=== PATIENT | female | born 1940 | race Caucasian/White ===

== ENCOUNTER 2017-04-07 03:49 | Emergency (ER) | payer MEDICARE, BC, OTHER ==
[~2017-04-07] VITALS: Ht 170.2 cm; Wt 77.4 kg
[~2017-04-07 03:49] MED LIST: AMIO200 PO; ASPI81TA45 PO; COMMODE 3:1; IRON28TA PO; LEVA750T PO; METO10 PO; METO25 PO; METR500I3 PO; OMEP20TA39 PO; WALKER ROLLING; WARF7.5 PO; ZOCO10TA PO
[2017-04-07 04:04] VITALS: BP 110/55; PULSE 69; RESP 20; TEMP 98.2; O2SAT 95
--- NOTE | 2017-04-07 04:11 | PD ---
HPI Chief Complaint: Injury Time Seen by Provider: 04:03 Travel History International Travel<30 days: No Contact w/Intl Traveler<30days: No Traveled to known affect area: No History of Present Illness HPI This is a 76-year-old female who presents to the emergency department having woken up from sleep with severe left elbow pain feeling like she has spasms in her elbow and arm involuntarily contract severity, constant for about an hour. She's never had anything like this before. She doesn't remember injuring her elbow before. She denies any numbness or weakness and denies any fevers or chills. She does have a history of psoriasis for which she is seeing a budget report clerk. PFSH Past Medical History Anxiety: No Depression: No Heart Rhythm Problems: Yes (RVR) Cancer: Yes (LUNG REMOVED) Cardiovascular Problems: Yes High Cholesterol: Yes Chemotherapy: No Chest Pain: Yes Congestive Heart Failure: Yes Cerebrovascular Accident: Yes (JANUARY 2010) Diabetes: Yes (NO MEDS-BORDERLINE) Diminished Hearing: No Endocrine: No Genitourinary: No Immune Disorder: No Implanted Vascular Access Dvce: Yes Musculoskeletal: No Neurologic: Yes (POST STROKE L SIDED SLIGHT WEAKNESS) Psychiatric: No Reproductive: No Respiratory: Yes Migraines: No Radiation Therapy: No Seizures: No Thyroid Disease: No Menopausal: Yes Past Surgical History Abdominal Surgery: Yes (APPENECTOMY, FILTER RIGHT GROIN FOR CLOTS) Body Medical Devices: FILTER L GROIN Cardiac Surgery: Yes (CARDIAC ABLATION X2) Eye Surgery: Yes (LASIX SX RIGHT EYE) Genitourinary Surgery: No Gynecologic Surgery: No Neurologic Surgery: Yes (BRAIN CLOT (CATHERIZATION)) Oral Surgery: No Thoracic Surgery: Yes (CANCER REMOVED FROM L LUNG) Other Surgery: Yes (BREAST BENIGN TUMOR REMOVED) Social History Alcohol Use: Yes (2-3 XWK WINE) Tobacco Use: No (QUIT 1989) Substance Use: No Allergies-Medications (Allergen,Severity, Reaction): Coded Allergies: Lovenox (Verified Allergy, Severe, HIVES, 04/07/17) Reported Meds & Prescriptions Reported Meds & Active Scripts Active Reported Omeprazole 20 Mg Tab 20 Mg PO DAILY Plavix (Clopidogrel Bisulfate) 75 Mg Tab 75 Mg PO DAILY Simvastatin 10 Mg Tab 10 Mg PO DAILY Review of Systems General / Constitutional: No: Fever, Chills Cardiovascular: No: Chest Pain or Discomfort Physical Exam Narrative GENERAL: Well-appearing, no acute distress, nontoxic SKIN: Pitting of the nailbeds, scaling plaques over the hands bilaterally HEAD: Atraumatic. Normocephalic. ENT: No nasal bleeding or discharge. Moist mucous membranes MUSCULOSKELETAL: Spasm of the bicep, no focal swelling of the elbow or bursa, painless range of motion of the left elbow Vascular: 2+ left radial pulse with normal capillary refill. NEUROLOGICAL: Awake and alert. No obvious cranial nerve deficits. Motor grossly within normal limits. Normal speech. PSYCHIATRIC: Appropriate mood and affect; insight and judgment normal. Data Data Last Documented VS Vital Signs Date Time Temp Pulse Resp B/P Pulse Ox O2 Delivery O2 Flow Rate FiO2 04/07/17 04:58 64 20 108/57 98 Room Air 04/07/17 04:04 98.2 Orders Elbow, Limited (Ap&Lat) (04/07/17 ) Diazepam (Valium) (04/07/17 04:15) Ketorolac Inj (Toradol Inj) (04/07/17 04:15) [facility] Medical Decision Making Medical Screen Exam Complete: Yes Emergency Medical Condition: Yes Interpretation(s) Last 24 hours Impressions Elbow X-Ray 04/07/17 0000 Signed Impressions: Service Date/Time: Friday, April 07, 2017 04:18 - CONCLUSION: Nonspecific joint effusion. Radiographic appearance of the left elbow is otherwise within normal limits. Alex Zarco MD Differential Diagnosis Osteoarthritis, psoriatic arthritis, septic arthritis, bursitis, muscle spasm Narrative Course This is a 76-year-old female who presents to the emergency department with left elbow pain that woke her from sleep. She has evidence of some muscle spasm in the bicep tendon on exam but painless range of motion so I doubt septic arthritis. She does have a joint effusion on x-ray. I suspect she has psoriatic arthritis as she appears to have an outbreak of psoriasis on the left hand and some joint involvement of her fingers. I recommended that she ultimately see a spooler and an orthopedist but I think she can start out with her primary care physician. She'll be started on tramadol and was given an Bairon wrap and instructions to elevate and rest the arm. Diagnosis Primary Impression: Elbow arthritis Patient Instructions: General Instructions Additional Instructions: If you develop worsening swelling, warmth, redness or fever return to the emergency department. Rest, ice, bairon wrap and elevate your elbow. Take tramadol as needed for pain. Talk to your primary care physician regarding a possible referral to a spooler. Med/Other Pt SpecificInfo: Prescription(s) given Scripts Tramadol 50 Mg Tab50 Mg PO Q6H PRN (PAIN) #15 TAB Prov:Cari Lowe MD 04/07/17 Disposition: 01 DISCHARGE HOME Condition: Stable Cari Lowe MD Apr 07, 2017 04:11
[2017-04-07] MEDS ORDERED: KETOROLAC TROMETHAMINE 60 MG/2 ML (IM) VIAL IM ONE (04:15)
[2017-04-07] MEDS ORDERED: DIAZEPAM 5 MG TAB PO ONE (04:15)
[2017-04-07] MEDS ORDERED: OMEP20TA PO (04:17)
[2017-04-07] MEDS ORDERED: SIMV10TA PO (04:17)
[2017-04-07] MEDS ORDERED: PLAV75TA29 PO (04:17)
--- NOTE | 2017-04-07 04:36 | RADRPT ---
EXAM DATE/TIME: 04/07/2017 04:18 [facility] COMPARISON: No previous studies available for comparison. INDICATIONS : Patient states woke up with left elbow pain and stiffness. MEDICAL HISTORY : None. SURGICAL HISTORY : None. ENCOUNTER: Initial ACUITY: 1 day PAIN SCORE: 8/10 LOCATION: Left elbow FINDINGS: Lateral view does suggest presence of a joint effusion. No fracture or subluxation demonstrated. No s ignificant degenerative changes are seen. No radiopaque foreign body. CONCLUSION: Nonspecific joint effusion. Radiographic appearance of the left elbow is otherwise within normal limi ts. Alex Zarco MD on April 07, 2017 at 4:34 Board Certified Radiologist. This report was verified electronically.
[2017-04-07 04:58] VITALS: BP 108/57; PULSE 64; RESP 20; O2SAT 98
[2017-04-07 05:17] VITALS: BP 98/47
[2017-04-07] MEDS ORDERED: TRAM50TA PO (05:17)
[2017-04-07] MEDS ORDERED: traMADol HCL 50 MG TAB PO ONE (05:30)
== END 2017-04-07 05:44 | disposition home or self-care (01) ==
LOC: PHED 03:49
DX: M19.022 Primary osteoarthritis, left elbow (principal)
CPT/HCPCS: 73070; 96372; 99284; J1885

== ENCOUNTER 2017-06-16 10:18 | Inpatient (IN) | payer MEDICARE, BC, OTHER ==
[2017-06-16] VITALS (12 sets, daily range): BP systolic 96–151; BP diastolic 53–80; PULSE 72–88; RESP 18–38; TEMP 96.6–98.3; O2SAT 79–100
[~2017-06-16 10:18] MED LIST changes: -AMIO200 PO; -ASPI81TA45 PO; -COMMODE 3:1; -IRON28TA PO; -LEVA750T PO; -METO10 PO; -METO25 PO; -METR500I3 PO; +OMEP20TA PO; -OMEP20TA39 PO; +PLAV75TA29 PO; +SIMV10TA PO; +TRAM50TA PO; -WALKER ROLLING; -WARF7.5 PO; -ZOCO10TA PO
[2017-06-16] MEDS ORDERED: RESP: ALBUTEROL 2.5 MG/IPRATROPIUM 0.5 MG NEB (SCH) INH ONE (10:30)
[2017-06-16] MEDS ORDERED: methylPREDNISolone SOD SUCC 125 MG/2 ML VIAL IV PUSH ONE (10:30)
--- NOTE | 2017-06-16 10:35 | PD ---
HPI Chief Complaint: shortness of breath Time Seen by Provider: 10:29 Travel History International Travel<30 days: No Contact w/Intl Traveler<30days: No Traveled to known affect area: No History of Present Illness HPI This is a 76-year-old female with history of lung cancer, COPD, presents today with points of shortness breath over 2 days. Patient reports is progressively worse over the last 2 days to the point where she cannot lie flat. She denies any fevers or chills but she does state that she's been diaphoretic because of the shortness of breath. There is no chest pain, chest pressure. She denies any productive cough. She does have an albuterol inhaler at home. She also uses Breo. There are no other complaints time my examination. PFSH Past Medical History Anxiety: No Depression: No Heart Rhythm Problems: Yes (RVR) Cancer: Yes (LUNG REMOVED) Cardiovascular Problems: Yes High Cholesterol: Yes Chemotherapy: No Chest Pain: Yes Congestive Heart Failure: Yes Cerebrovascular Accident: Yes (JANUARY 2010) Diabetes: Yes (NO MEDS-BORDERLINE) Diminished Hearing: No Endocrine: No Genitourinary: No Immune Disorder: No Implanted Vascular Access Dvce: Yes Musculoskeletal: No Neurologic: Yes (2000 CVA) Psychiatric: No Reproductive: No Respiratory: Yes Migraines: No Radiation Therapy: No Seizures: No Thyroid Disease: No Menopausal: Yes Past Surgical History Abdominal Surgery: Yes (APPENECTOMY, FILTER RIGHT GROIN FOR CLOTS) Body Medical Devices: FILTER L GROIN Cardiac Surgery: Yes (CARDIAC ABLATION X2) Eye Surgery: Yes (LASIX SX RIGHT EYE) Genitourinary Surgery: No Gynecologic Surgery: No Neurologic Surgery: Yes (BRAIN CLOT (CATHERIZATION)) Oral Surgery: No Thoracic Surgery: Yes (CANCER REMOVED FROM L LUNG) Other Surgery: Yes (BREAST BENIGN TUMOR REMOVED) Social History Alcohol Use: Yes (2-3 XWK WINE) Tobacco Use: No (QUIT 1989) Substance Use: No Allergies-Medications (Allergen,Severity, Reaction): Coded Allergies: enoxaparin (Unverified Allergy, Severe, HIVES, 06/16/17) Reported Meds & Prescriptions Reported Meds & Active Scripts Active Reported Potassium Chloride ER (Potassium Chloride) 20 Meq Tab 20 Meq PO DAILY Pantoprazole (Pantoprazole Sodium) 40 Mg Tab 40 Mg PO DAILY Metoprolol Tartrate 25 Mg Tab 25 Mg PO DAILY Levothyroxine (Levothyroxine Sodium) 50 Mcg Tab 50 Mcg PO DAILY Warfarin 5 Mg Tab 5 Mg PO DAILY Furosemide 40 Mg Tab 40 Mg PO BID Plavix (Clopidogrel Bisulfate) 75 Mg Tab 75 Mg PO DAILY Simvastatin 10 Mg Tab 10 Mg PO HS Review of Systems Except as stated in HPI: all other systems reviewed are Neg General / Constitutional: No: Fever, Chills HENT: No: Headaches, Neck Pain Cardiovascular: Positive: Irregular Rhythm (history of A. fib), No: Chest Pain or Discomfort, Palpitations Respiratory: Positive: Shortness of Breath, No: Cough Gastrointestinal: No: Nausea, Vomiting, Abdominal Pain Musculoskeletal: No: Weakness, Pain Skin: No Rash Neurologic: No: Weakness, Dizziness, Headache Physical Exam Narrative GENERAL: Well-developed well-nourished female in moderate respiratory distress. SKIN: Focused skin assessment warm/dry. HEAD: Atraumatic. Normocephalic. EYES: No scleral icterus. No injection or drainage. ENT: No nasal bleeding or discharge. Mucous membranes pink and moist. NECK: Trachea midline. Supple. CARDIOVASCULAR: Regular rate and rhythm. No murmur appreciated. RESPIRATORY: Coarse rhonchi bilaterally, worse on left than right. Fine next 3 wheezes heard at the bilateral bases. GASTROINTESTINAL: Abdomen soft, non-tender, nondistended. Hepatic and splenic margins not palpable. MUSCULOSKELETAL: No obvious deformities. No clubbing. No cyanosis. Trace pretibial edema bilaterally. NEUROLOGICAL: Awake and alert. No obvious cranial nerve deficits. Motor grossly within normal limits. Normal speech. PSYCHIATRIC: Appropriate mood and affect; insight and judgment normal. Data Data Last Documented VS Vital Signs Date Time Temp Pulse Resp B/P (MAP) Pulse Ox O2 Delivery O2 Flow Rate FiO2 06/16/17 11:39 72 26 108/53 (71) 98 BiPAP 06/16/17 11:08 98.3 06/16/17 11:07 2.00 06/16/17 11:00 70 Orders Orders Complete Blood Count With Diff (06/16/17 10:29) Comprehensive Metabolic Panel (06/16/17 10:29) B-Type Natriuretic Peptide (06/16/17 10:29) Ckmb (Isoenzyme) Profile (06/16/17 10:29) Troponin I (06/16/17 10:29) Arterial Blood Gas (Abg) (06/16/17 10:29) Iv Access Insert/Monitor (06/16/17 10:29) Electrocardiogram (06/16/17 10:29) Ecg Monitoring (06/16/17 10:29) Oximetry (06/16/17 10:29) Oxygen Administration (06/16/17 10:29) Chest, Single Ap (06/16/17 10:29) Sodium Chloride 0.9% Flush (Ns Flush) (06/16/17 10:30) Methylprednisolone So Succ Inj (Solumedr (06/16/17 10:30) Albuterol-Ipratropium Neb (Duoneb Neb) (06/16/17 10:30) Albuterol Neb (Albuterol Neb) (06/16/17 10:30) Lorazepam Inj (Ativan Inj) (06/16/17 11:00) Furosemide Inj (Lasix Inj) (06/16/17 11:15) Prothrombin Time / Inr (Pt) (06/16/17 12:05) Act Partial Throm Time (Ptt) (06/16/17 12:05) Labs Laboratory Tests Test 06/16/17 10:35 06/16/17 11:00 White Blood Count 10.1 TH/MM3 Red Blood Count 4.36 MIL/MM3 Hemoglobin 8.6 GM/DL Hematocrit 29.4 % Mean Corpuscular Volume 67.4 FL Mean Corpuscular Hemoglobin 19.8 PG Mean Corpuscular Hemoglobin Concent 29.4 % Red Cell Distribution Width 19.6 % Platelet Count 416 TH/MM3 Mean Platelet Volume 8.1 FL Neutrophils (%) (Auto) 60.5 % Lymphocytes (%) (Auto) 23.3 % Monocytes (%) (Auto) 12.6 % Eosinophils (%) (Auto) 1.7 % Basophils (%) (Auto) 1.9 % Neutrophils # (Auto) 6.1 TH/MM3 Lymphocytes # (Auto) 2.3 TH/MM3 Monocytes # (Auto) 1.3 TH/MM3 Eosinophils # (Auto) 0.2 TH/MM3 Basophils # (Auto) 0.2 TH/MM3 CBC Comment AUTO DIFF Differential Comment AUTO DIFF CONFIRMED Target Cells 1+ Ovalocytes 2+ Keratocytes OCC Blood Urea Nitrogen 11 MG/DL Creatinine 0.77 MG/DL Random Glucose 284 MG/DL Total Protein 7.6 GM/DL Albumin 3.1 GM/DL Calcium Level 8.6 MG/DL Alkaline Phosphatase 104 U/L Aspartate Amino Transf (AST/SGOT) 24 U/L Alanine Aminotransferase (ALT/SGPT) 14 U/L Total Bilirubin 0.5 MG/DL Sodium Level 140 MEQ/L Potassium Level 3.8 MEQ/L Chloride Level 106 MEQ/L Carbon Dioxide Level 22.4 MEQ/L Anion Gap 12 MEQ/L Estimat Glomerular Filtration Rate 73 ML/MIN Total Creatine Kinase 95 U/L Troponin I LESS THAN 0.02 NG/ML B-Type Natriuretic Peptide 528 PG/ML Blood Gas Puncture Site RT RADIAL Blood Gas Patient Temperature 98.6 Blood Gas HCO3 22 mmol/L Blood Gas Base Excess -3.3 mmol/L Blood Gas Oxygen Saturation 87 % Arterial Blood pH 7.32 Arterial Blood Partial Pressure CO2 44 mmHG Arterial Blood Partial Pressure O2 67 mmHG Arterial Blood Oxygen Content 9.9 Vol % Arterial Blood Carboxyhemoglobin 2.2 % Arterial Blood Methemoglobin 1.2 % Blood Gas Hemoglobin 8.1 G/DL Oxygen Delivery Device NASAL CANNULA Blood Gas Liter Flow 2 L/M [facility] Medical Decision Making Medical Screen Exam Complete: Yes Emergency Medical Condition: Yes Differential Diagnosis COPD versus CHF versus pneumonia Narrative Course 76-year-old female history lung cancer, status post lobectomy on the left, COPD , presents today with shortness of breath progressive over 2 days patient denies any fevers, chills. Patient states that she cannot lie flat secondary to the shortness of breath. Chest x-ray shows congestive heart failure. Her d- dimer is elevated at greater than 500. She's been given 3 breathing treatments , 125 mg of Solu-Medrol, 40 Lasix. She is currently on BiPAP. She is breathing much better. She's been given Ativan 1 mg I V times one dose also to help her relax because she was feeling claustrophobic with the BiPAP. Her sats are 100%. Blood gas on 2 L showed pH of 7.318 PCO2 43.9 and a PO2 of 67.1. O2 sat was 86.6%. There is a call out to the [facility] hospitalist service for admission. The patient is on Coumadin. She does have history of A. fib however her heart rhythm right now is sinus rhythm. Blood glucose is elevated at 284. Cardiac enzymes are negative. Diagnosis Primary Impression: Acute exacerbation of CHF (congestive heart failure) Additional Impressions: Hypoxemia Hyperglycemia History of COPD History of lung cancer Admitting Information Admitting Physician Requests: Admit Sebastian Ng MD Jun 16, 2017 10:35
[2017-06-16 10:45] LABS: AUTOMATED NEUTROPHIL # 6.1 TH/MM3 (1.8-7.7); BASOPHIL # 0.2 TH/MM3 (0-0.2); BASOPHIL % 1.9 % (0.0-2.0); EOSINOPHIL # 0.2 TH/MM3 (0-0.4); EOSINOPHIL % 1.7 % (0.0-4.0); HEMATOCRIT 29.4 % (35.0-46.0); LYMPH % 23.3 % (9.0-44.0); LYMPHOCYTE # 2.3 TH/MM3 (1.0-4.8); MEAN CELL VOLUME 67.4 FL (80.0-100.0); MEAN CORPUSCULAR HEMOGLOBIN 19.8 PG (27.0-34.0); MONO % 12.6 % (0.0-8.0); NEUT % 60.5 % (16.0-70.0); PLATELET COUNT 416 TH/MM3 (150-450); RED BLOOD COUNT 4.36 MIL/MM3 (4.00-5.30); RED CELL DISTRIBUTION WIDTH 19.6 % (11.6-17.2); WHITE BLOOD COUNT 10.1 TH/MM3 (4.0-11.0)
[2017-06-16] MEDS: SODIUM CHLORIDE 0.9% FLUSH 10 ML FLUSH IVF PRN ×2 (10:45→11:42)
[2017-06-16 10:46] LABS: HEMO FLAGS AUTO DIFF; MEAN CORPUSCULAR HGB CONC 29.4 % (32.0-36.0)
[2017-06-16] MEDS ORDERED: FURO40TA PO (10:47)
[2017-06-16] MEDS ORDERED: METO25TA3 PO (10:47)
[2017-06-16] MEDS ORDERED: WARF-23 PO (10:47)
[2017-06-16] MEDS ORDERED: POTA-163 PO (10:47)
[2017-06-16] MEDS ORDERED: LEVO50TA4 PO (10:47)
[2017-06-16] MEDS ORDERED: PANT40TA3 PO (10:47)
--- NOTE | 2017-06-16 10:49 | RADRPT ---
EXAM DATE/TIME: 06/16/2017 10:34 [facility] COMPARISON: CHEST SINGLE AP, November 23, 2015, 21:03. INDICATIONS : Short of breath. MEDICAL HISTORY : Cardiovascular disease. Chronic obstructive pulmonary disease. SURGICAL HISTORY : Cardiac ablation ENCOUNTER: Initial ACUITY: 2 days PAIN SCORE: 0/10 LOCATION: Bilateral chest FINDINGS: There is cardiomegaly and moderate congestive failure progressed from 11/23/15. There is no pleural effusion. There is no consolidation. CONCLUSION: Moderate congestive failure without effusion. Adonis Soriano MD FACR on June 16, 2017 at 10:47 Board Certified Radiologist. This report was verified electronically.
[2017-06-16] MEDS: RESP: ALBUTEROL 2.5 MG/3 ML NEB (SCH) INH ×2 (10:51→11:14)
[2017-06-16 10:54] LABS: CHLORIDE 106 MEQ/L (98-107); POTASSIUM 3.8 MEQ/L (3.5-5.1); SODIUM (NA) 140 MEQ/L (136-145)
[2017-06-16 10:58] LABS: ANION GAP 12 MEQ/L (5-15); BICARBONATE 22.4 MEQ/L (21.0-32.0); BLOOD UREA NITROGEN 11 MG/DL (7-18)
[2017-06-16] MEDS ORDERED: LORazepam 2 MG/ML VIAL IV PUSH ONE (11:00)
[2017-06-16 11:01] LABS: ALT (GPT) 14 U/L (10-53); AST (GOT) 24 U/L (15-37); GLOMERULAR FILTRATION RATE 73 ML/MIN (>89)
[2017-06-16 11:02] LABS: TOTAL BILIRUBIN ADULT 0.5 MG/DL (0.2-1.0)
[2017-06-16 11:04] LABS: ALKALINE PHOSPHATASE 104 U/L (45-117)
[2017-06-16 11:10] LABS: BLOOD GAS BASE EXCESS -3.3 mmol/L (-2-2); BLOOD GAS CARBOXYHEMOGLOBIN 2.2 % (0-4); BLOOD GAS HCO3 22 mmol/L (22-26); BLOOD GAS METHEMOGLOBIN 1.2 % (0-2); BLOOD GAS O2 HGB SATURATION 87 % (90-100); BLOOD GAS OXYGEN CONTENT 9.9 Vol % (12.0-20.0); BLOOD GAS PCO2 44 mmHG (38-42); BLOOD GAS PO2 67 mmHG (61-120); BLOOD GAS TOTAL HGB 8.1 G/DL (12.0-16.0); CRITICAL VALUE YES; DRAW SITE RT RADIAL; LITER FLOW 2 L/M; NUMBER OF ARTERIAL PUNCTURES 1; OXYGEN DEVICE NASAL CANNULA; STAT YES; TEMP CORR TO 98.6; ULNAR PULSE PRESENT
[2017-06-16 11:14] LABS: KERATOCYTES OCC (NORMAL); OVALOCYTES 2+ (NORMAL); TARGET CELLS 1+ (NORMAL)
[2017-06-16 11:15] LABS: SCAN/DIFF AUTO DIFF CONFIRMED
[2017-06-16] MEDS ORDERED: FUROSEMIDE 40 MG/4 ML VIAL IV PUSH ONE (11:15)
[2017-06-16 11:21] LABS: CREATINE KINASE 95 U/L (26-192)
[2017-06-16 12:27] LABS: APTT (PATIENT) 23.3 SEC (24.3-30.1); INTERNATIONAL NORMALIZED RATIO 1.2 RATIO; PROTHROMBIN TIME - PATIENT 12.9 SEC (9.8-11.6)
[2017-06-16] MEDS ORDERED: NALOXONE HCL 0.4 MG/ML AMP IV PUSH PRN (12:30)
[2017-06-16] MEDS ORDERED: FUROSEMIDE 20 MG/2 ML VIAL IV PUSH ONE (12:30)
[2017-06-16] MEDS ORDERED: SODIUM CHLORIDE 0.9% FLUSH 10 ML FLUSH IV FLUSH PRN (12:30)
--- NOTE | 2017-06-16 16:18 | HHI.HP ---
[facility] Viviane Garzon MD Admission Diagnosis new onset chf, hypoxemia, hyperglycemia, copd, hx of lung ca Diagnoses: Travel History International Travel<30 Days: No Contact w/Intl Traveler <30 Da: No Traveled to Known Affected Are: No History of Present Illness This patient is a 76-year-old female with a history of COPD and atrial fibrillation. She has had 2 weeks of increased dyspnea on exertion and orthopnea. She notes she saw her primary care physician with the same symptoms and was given a breo inhaler with minimal improvement. She had no chest pain, no edema and noted that she began to feel dizzy. She came to the emergency room was found to be 70% on room air and given some IV Lasix with BiPAP placement. Patient did better and had diuresis, the emergency room. Her oxygenation improved. She admits she has had pursed lip breathing the last weeks and thought that it was COPD. She quit smoking in the late . Patient's been admitted to the hospital for respiratory failure Past Family Social History Past Medical History Afib COPD Thyroid d/o Past Surgical History Appendectomy Left groin filter, cardiac ablation, eye surgery Left lung resection Breast tumor resection Reported Medications Reviewed in the EMR, stop all of her medications for the last 10 days after misunderstanding because her Coumadin was elevated and she was post started her warfarin Allergies: Coded Allergies: enoxaparin (Unverified Allergy, Severe, HIVES, 06/16/17) Active Ordered Medications Reviewed in the EMR Family History Mother of lung cancer Father unknown Social History Stopped smoking years ago ( 1997), lives with her spouse, alcohol daily Physical Exam Vital Signs Vital Signs Date Time Temp Pulse Resp B/P (MAP) Pulse Ox O2 Delivery O2 Flow Rate FiO2 06/16/17 13:32 74 22 112/59 (76) 98 BiPAP 06/16/17 13:15 95 Nasal Cannula 2.00 06/16/17 13:11 75 22 109/69 (82) 97 BiPAP 06/16/17 11:39 72 26 108/53 (71) 98 BiPAP 06/16/17 11:08 100 BiPAP 06/16/17 11:08 98.3 06/16/17 11:07 83 24 145/80 (101) 91 Nasal Cannula 2.00 06/16/17 11:00 100 70 06/16/17 11:00 90 Nasal Cannula 06/16/17 10:52 91 Nasal Cannula 2.00 06/16/17 10:50 85 28 151/76 (101) 92 Nasal Cannula 2.00 06/16/17 10:28 92 Nasal Cannula 2.00 06/16/17 10:25 88 38 144/76 (98) 79 Physical Exam GENERAL: This is a well-nourished, well-developed patient, short of breath with pursed lip breathing with minimal exertion SKIN: No rashes, ecchymoses or lesions. Cool and dry. HEAD: Atraumatic. Normocephalic. No temporal or scalp tenderness. EYES: Pupils equal round and reactive. Extraocular motions intact. No scleral icterus. No injection or drainage. ENT: Nose without bleeding, purulent drainage or septal hematoma. Throat without erythema, tonsillar hypertrophy or exudate. Uvula midline. Airway patent. NECK: Trachea midline. No JVD or lymphadenopathy. Supple, nontender, no meningeal signs. CARDIOVASCULAR: Atrial fibrillation without murmurs, gallops, or rubs. RESPIRATORY: Crackles at the bases bilaterally, worse on the right. GASTROINTESTINAL: Abdomen soft, non-tender, nondistended. No hepato-splenomegaly , or palpable masses. No guarding. MUSCULOSKELETAL: Extremities without clubbing, cyanosis, or edema. No joint tenderness, effusion, or edema noted. No calf tenderness. Negative Homans sign bilaterally. NEUROLOGICAL: Awake and alert. Cranial nerves II through XII intact. Motor and sensory grossly within normal limits. Five out of 5 muscle strength in all muscle groups. Normal speech. Laboratory Laboratory Tests Test 06/16/17 10:35 06/16/17 11:00 White Blood Count 10.1 Red Blood Count 4.36 Hemoglobin 8.6 Hematocrit 29.4 Mean Corpuscular Volume 67.4 Mean Corpuscular Hemoglobin 19.8 Mean Corpuscular Hemoglobin Concent 29.4 Red Cell Distribution Width 19.6 Platelet Count 416 Mean Platelet Volume 8.1 Neutrophils (%) (Auto) 60.5 Lymphocytes (%) (Auto) 23.3 Monocytes (%) (Auto) 12.6 Eosinophils (%) (Auto) 1.7 Basophils (%) (Auto) 1.9 Neutrophils # (Auto) 6.1 Lymphocytes # (Auto) 2.3 Monocytes # (Auto) 1.3 Eosinophils # (Auto) 0.2 Basophils # (Auto) 0.2 CBC Comment AUTO DIFF Differential Comment AUTO DIFF CONFIRMED Target Cells 1+ Ovalocytes 2+ Keratocytes OCC Prothrombin Time 12.9 Prothromb Time International Ratio 1.2 Activated Partial Thromboplast Time 23.3 Blood Urea Nitrogen 11 Creatinine 0.77 Random Glucose 284 Total Protein 7.6 Albumin 3.1 Calcium Level 8.6 Alkaline Phosphatase 104 Aspartate Amino Transf (AST/SGOT) 24 Alanine Aminotransferase (ALT/SGPT) 14 Total Bilirubin 0.5 Sodium Level 140 Potassium Level 3.8 Chloride Level 106 Carbon Dioxide Level 22.4 Anion Gap 12 Estimat Glomerular Filtration Rate 73 Total Creatine Kinase 95 Troponin I LESS THAN 0.02 B-Type Natriuretic Peptide 528 Blood Gas Puncture Site RT RADIAL Blood Gas Patient Temperature 98.6 Blood Gas HCO3 22 Blood Gas Base Excess -3.3 Blood Gas Oxygen Saturation 87 Arterial Blood pH 7.32 Arterial Blood Partial Pressure CO2 44 Arterial Blood Partial Pressure O2 67 Arterial Blood Oxygen Content 9.9 Arterial Blood Carboxyhemoglobin 2.2 Arterial Blood Methemoglobin 1.2 Blood Gas Hemoglobin 8.1 Oxygen Delivery Device NASAL CANNULA Blood Gas Liter Flow 2 Result Diagram: 06/16/17 1035 06/16/17 1035 Imaging Last Impressions Chest X-Ray 06/16/17 1029 Signed Impressions: Service Date/Time: Friday, June 16, 2017 10:34 - CONCLUSION: Moderate congestive failure without effusion. Adonis Soriano MD FACR Caprini VTE Risk Assessment Caprini VTE Risk Assessment: Mod/High Risk (score >= 2) VTE Pharm Contraindication: on Coumadin Caprini Risk Assessment Model Point Value = 1 Point Value = 2 Point Value = 3 Point Value = 5 Age 41-60 Minor surgery BMI > 25 kg/m2 Swollen legs Varicose veins or History of unexplained or recurrent spontaneous Oral contraceptives or hormone replacement Sepsis (< 1 month) Serious lung disease, including pneumonia (< 1 month) Abnormal pulmonary function Acute myocardial infarction Congestive heart failure (< 1 month) History of inflammatory bowel disease Medical patient at bed rest Age 61-74 Arthroscopic surgery Major open surgery (> 45 min) Laparoscopic surgery (> 45 min) Malignancy Confined to bed (> 72 hours) Immobilizing plaster cast Central venous access Age >= 75 History of VTE Family history of VTE Factor V Leiden Prothrombin [id number] Lupus anticoagulant Anticardiolipin antibodies Elevated serum homocysteine Heparin-induced thrombocytopenia Other congenital or acquired thrombophilia Stroke (< 1 month) Elective arthroplasty Hip, pelvis, or leg fracture Acute spinal cord injury (< 1 month) Prophylaxis Regimen Total Risk Factor Score Risk Level Prophylaxis Regimen 0-1 Low Early ambulation 2 Moderate Order ONE of the following: *Sequential Compression Device (SCD) *Heparin 5000 units SQ BID 3-4 Higher Order ONE of the following medications: *Heparin 5000 units SQ TID *Enoxaparin/Lovenox 40 mg SQ daily (WT < 150 kg, CrCl > 30 mL/min) *Enoxaparin/Lovenox 30 mg SQ daily (WT < 150 kg, CrCl > 10-29 mL/min) *Enoxaparin/Lovenox 30 mg SQ BID (WT < 150 kg, CrCl > 30 mL/min) AND/OR *Sequential Compression Device (SCD) 5 or more Highest Order ONE of the following medications: *Heparin 5000 units SQ TID (Preferred with Epidurals) *Enoxaparin/Lovenox 40 mg SQ daily (WT < 150 kg, CrCl > 30 mL/min) *Enoxaparin/Lovenox 30 mg SQ daily (WT < 150 kg, CrCl > 10-29 mL/min) *Enoxaparin/Lovenox 30 mg SQ BID (WT < 150 kg, CrCl > 30 mL/min) AND *Sequential Compression Device (SCD) Assessment and Plan Problem List: (1) History of COPD ICD Code: Z87.09 - Personal history of other diseases of the respiratory system Status: Acute Plan: With mild exacerbation Continue bronchodilator, IV steroids (2) Hypoxemia ICD Code: R09.02 - Hypoxemia Status: Acute Plan: With evidence of respiratory failure requiring BiPAP. Status post Lasix patient's respirator status has improved. Likely multifactorial due to COPD and possible CHF. Echocardiogram from 2009 within normal limits, repeat pending Continue to follow on Lasix and cardiology consult pending Continue treatment for COPD with mild exacerbation (3) Atrial fibrillation and flutter ICD Code: I48.91 - Unspecified atrial fibrillation; I48.92 - Unspecified atrial flutter Status: Chronic Plan: Patient has been on warfarin with elevated INR. Her medications have been held and in fact she held "all of her medications "for the last 10 days. Rate is currently controlled, INR is 1.2 today Assessment and Plan on Coumadin Physician Certification 2 Midnight Certification Type: Admission for Inpatient Services Order for Inpatient Services The services are ordered in accordance with Medicare regulations or non- Medicare payer requirements, as applicable. In the case of services not specified as inpatient-only, they are appropriately provided as inpatient services in accordance with the 2-midnight benchmark. Estimated LOS (days): 4 4 days is the estimated time the patient will need to remain in the hospital, assuming treatment plan goals are met and no additional complications. Post-Hospital Plan: Silke Santiago MD Jun 16, 2017 16:18
[2017-06-16] MEDS: FUROSEMIDE 40 MG/4 ML VIAL IV PUSH SCH ×2 (18:00→19:35)
[2017-06-16] MEDS: SODIUM CHLORIDE 0.9% FLUSH 10 ML FLUSH IV FLUSH SCH (20:34)
[2017-06-16] MEDS: methylPREDNISolone SOD SUCC 40 MG/1 ML VIAL IV PUSH SCH (20:34)
[2017-06-16] MEDS: PRAVASTATIN SOD 20 MG TAB PO SCH (20:35)
--- NOTE | 2017-06-16 20:36 | EKG ---
Date Performed: 06/16/2017 Time Performed: 10:49:26 PTAGE: 76 years EKG: Sinus rhythm NONSPECIFIC ST & T-WAVE ABNORMALITY BORDERLINE ECG PREVIOUS TRACING : 11/28/2015 12.17 Compared to prior tracing no significant change DOCTOR: Gregor Gerard Interpretating Date/Time 06/16/2017 20:35:01
[2017-06-16 21:28] LABS: HEMOGLOBIN A1a 2.2 %; HEMOGLOBIN A1b 2.2 %; HEMOGLOBIN Ao 82.1 %; HEMOGLOBIN LA1C 2.6 %; HEMOGLOBIN P3 4.1 %
[2017-06-17] VITALS: BP 113/72; PULSE 74; RESP 18; TEMP 96.5; O2SAT 97
[2017-06-17 04:00] VITALS: BP 115/63; PULSE 74; RESP 18; TEMP 95.6; O2SAT 97
[2017-06-17] MEDS: LEVOTHYROXINE SODIUM 50 MCG TAB PO SCH (05:12)
[2017-06-17 08:00] VITALS: BP 107/60; PULSE 64; PULSE 69; RESP 20; TEMP 97.5; O2SAT 99
[2017-06-17] MEDS ORDERED: POTASSIUM CHLORIDE 20 MEQ CONTROLLED RELEASE TAB PO SCH (09:30)
[2017-06-17] MEDS: CLOPIDOGREL 75 MG TAB PO SCH (09:39)
[2017-06-17] MEDS: POTASSIUM CHLORIDE 20 MEQ CONTROLLED RELEASE TAB PO SCH (09:39)
[2017-06-17] MEDS: METOPROLOL TARTRATE 25 MG TAB PO SCH (09:40)
[2017-06-17] MEDS: FUROSEMIDE 40 MG/4 ML VIAL IV PUSH SCH ×2 (09:40→17:05)
[2017-06-17] MEDS: SODIUM CHLORIDE 0.9% FLUSH 10 ML FLUSH IV FLUSH SCH ×2 (09:40→21:15)
[2017-06-17] MEDS: methylPREDNISolone SOD SUCC 40 MG/1 ML VIAL IV PUSH SCH ×2 (09:42→21:15)
[2017-06-17] MEDS: PANTOPRAZOLE SOD 40 MG DELAYED RELEASE TAB PO SCH (09:42)
[2017-06-17] MEDS ORDERED: INFLUENZA VIRUS VACCINE (QUADRIVALENT) 0.5 ML SYR IM ONE (10:00)
--- NOTE | 2017-06-17 11:44 | ECHRPT ---
Indication: HEART FAILURE CONCLUSIONS Normal left ventricular size. Mild concentric left ventricular hypertrophy. The left ventricular systolic function is moderately reduced with an estimated ejection fraction in the range of 40-45%. There is diffuse global hypokinesis with distinct regional wall motion abnormalities. Doppler parameters are consistent with a restrictive left ventricular filling pattern indicative of decreased left ventricular diastolic compliance and increase left atrial pressure (grade 3 diastolic dysfuncti on). The left atrial size is moderately dilated. The right atrial size is mildly dilated. No atrial level shunt is demonstrated by color flow Doppler interrogation. Mild thickening of the mitral valve leaflets. Vmuo-dr-[id number] mitral valve regurgitation. There is trace tricuspid valve regurgitation. There is estimated moderate pulmonary hypertension present (range 50-60 mmHg). The inferior vena cava (IVC) is normal in size. There is greater than 50% respiratory change in dimension of the inferior vena cava (normal). A large left sided pleural effusion is noted. BP: 107 / 60 HR: 69 Rhythm: Sinus MEASUREMENTS (Male / Female) Normal Values Technical Quality:Fair 2D ECHO LV Diastolic Diameter PLAX 5.0 cm 4.2 - 5.9 / 3.9 - 5.3 cm LV Systolic Diameter PLAX 3.9 cm IVS Diastolic Thickness 1.1 cm 0.6 - 1.0 / 0.6 - 0.9 cm LVPW Diastolic Thickness 0.7 cm 0.6 - 1.0 / 0.6 - 0.9 cm LV Relative Wall Thickness 0.4 LVOT Diameter 2.3 cm Aortic Root Diameter 2.8 cm LA Systolic Diameter LX 2.1 cm 3.0 - 4.0 / 2.7 - 3.8 cm M-MODE AV Cusp Separation MM 2.0 cm DOPPLER AV Peak Velocity 122.0 cm/s AV Peak Gradient 6.0 mmHg AV Mean Gradient 3.0 mmHg AV Velocity Time Integral 25.4 cm LVOT Peak Velocity 60.9 cm/s LVOT Peak Gradient 1.5 mmHg LVOT Velocity Time Integral 12.8 cm LVOT Cardiac Index 1919.4 cm/minm AV Area Cont Eq vti 2.1 cm AV Area Cont Eq pk 2.1 cm Mitral E Point Velocity 76.5 cm/s Mitral A Point Velocity 28.6 cm/s Mitral E to A Ratio 2.7 LV E' Lateral Velocity 6.5 cm/s Mitral E to LV E' Lateral Ratio 11.7 LV E' Septal Velocity 4.0 cm/s Mitral E to LV E' Septal Ratio 19.2 TR Peak Velocity 355.0 cm/s TR Peak Gradient 50.4 mmHg Right Atrial Pressure 10.0 mmHg Pulmonary Artery Systolic Pressu 60.4 mmHg Right Ventricular Systolic Press 60.4 mmHg PV Peak Velocity 56.4 cm/s PV Peak Gradient 1.3 mmHg FINDINGS LEFT VENTRICLE Normal left ventricular size. Mild concentric left ventricular hypertrophy. The left ventricular systolic function is moderately reduced with an estimated ejection fraction in the range of 40-45%. There is diffuse global hypokinesis with distinct regional wall motion abnormalities. Doppler parameters are consistent with a restrictive left ventricular filling pattern indicative of decreased left ventricular diastolic compliance and increase left atrial pressure (grade 3 diastolic dysfuncti on). RIGHT VENTRICLE Normal right ventricular size and systolic function. LEFT ATRIUM The left atrial size is moderately dilated. RIGHT ATRIUM The right atrial size is mildly dilated. ATRIAL SEPTUM No atrial level shunt is demonstrated by color flow Doppler interrogation. AORTA The aortic root and proximal ascending aorta are normal in size on limited imaging. MITRAL VALVE Mild thickening of the mitral valve leaflets. [id number]-xzysmlrx mitral valve regurgitation. AORTIC VALVE Trileaflet aortic valve. No aortic valve stenosis or regurgitation. TRICUSPID VALVE Structurally normal tricuspid valve. There is trace tricuspid valve regurgitation. There is estimated moderate pulmonary hypertension present (range 50-60 mmHg). PULMONARY VALVE No pulmonary valve regurgitation or stenosis. VESSELS The inferior vena cava (IVC) is normal in size. There is greater than 50% respiratory change in dimension of the inferior vena cava (normal). PERICARDIUM No pericardial effusion. A large left sided pleural effusion is noted. Kemar Schaefer MD, FACC (Electronically Signed) Final Date:17 June 2017 11:42
[2017-06-17 12:00] VITALS: BP 98/50; PULSE 67; RESP 18; TEMP 97.2; O2SAT 97
--- NOTE | 2017-06-17 13:34 | HHI.PR ---
Subjective Remarks patient seen in room in follow up for SOB with Pursed lip breathing and HUSSEIN Hypoxemia is better Trop up Objective Vitals Vital Signs Date Time Temp Pulse Resp B/P (MAP) Pulse Ox O2 Delivery O2 Flow Rate FiO2 06/17/17 12:00 97.2 67 18 98/50 (66) 97 06/17/17 08:00 97.5 69 20 107/60 (76) 99 06/17/17 07:00 96 Nasal Cannula 2.00 06/17/17 04:00 95.6 74 18 115/63 (80) 97 06/17/17 00:00 96.5 74 18 113/72 (86) 97 06/16/17 20:00 96.6 76 18 113/67 (82) 98 06/16/17 20:00 98 Nasal Cannula 2.00 06/16/17 20:00 83 06/16/17 16:57 97.5 73 20 96/60 (72) 98 06/16/17 13:32 74 22 112/59 (76) 98 BiPAP I/O 06/16/17 06/16/17 06/16/17 06/17/17 06/17/17 06/17/17 07:00 15:00 23:00 07:00 15:00 23:00 Intake Total 240 ml Output Total 650 ml 300 ml 1400 ml Balance -650 ml -300 ml -1160 ml Intake Oral 240 ml Output Urine Total 650 ml 300 ml 1400 ml # Voids 2 Result Diagram: 06/16/17 1035 06/16/17 1035 Imaging Last Impressions Chest X-Ray 06/16/17 1029 Signed Impressions: Service Date/Time: Friday, June 16, 2017 10:34 - CONCLUSION: Moderate congestive failure without effusion. Adonis Soriano MD FACR Objective Remarks GENERAL: This is a well-nourished, well-developed patient, pursed lip breathing CARDIOVASCULAR: Regular rate and rhythm without murmurs, gallops, or rubs. RESPIRATORY: decreased breath sounds bilaterally. No wheezes, rales, or rhonchi. GASTROINTESTINAL: Abdomen soft, non-tender, nondistended. Normal active bowel sounds MUSCULOSKELETAL: Extremities without clubbing, cyanosis, or edema. NEURO: Alert & Oriented x4 to person, place, time, situation. Moves all ext x4 A/P Problem List: (1) History of COPD ICD Code: Z87.09 - Personal history of other diseases of the respiratory system Status: Acute Plan: With mild exacerbation (no home meds, sees Dr Yousif) Continue bronchodilator, IV steroids (2) Hypoxemia ICD Code: R09.02 - Hypoxemia Status: Acute Plan: With evidence of respiratory failure requiring BiPAP. Status post Lasix patient's respirator status has improved. Likely multifactorial due to COPD and acute exacerbation of CHF. Echocardiogram shows LVF decreased and right heart dysfunction (combined systolic and diastolic Heart failure) Continue to follow on Lasix and cardiology consult pending Continue treatment for COPD with mild exacerbation (3) Atrial fibrillation and flutter ICD Code: I48.91 - Unspecified atrial fibrillation; I48.92 - Unspecified atrial flutter Status: Chronic Plan: Patient has been on warfarin with elevated INR. Her medications have been held and in fact she held "all of her medications" for the last 10 days. Rate is currently controlled, INR is 1.2 today cont metoprolol (4) Elevated troponin ICD Code: R74.8 - Abnormal levels of other serum enzymes Plan: With SOB and Increased WOB ? anginal equivalent Cath previously showed Nl coronaries Cont BB, warfari/plavix (allergy to enoxaparin) Silke Norwood MD Jun 17, 2017 13:34
[2017-06-17] MEDS: WARFARIN SOD 5 MG TAB PO SCH (15:10)
[2017-06-17 16:00] VITALS: BP 100/53; PULSE 66; RESP 18; TEMP 97.2; O2SAT 98
--- NOTE | 2017-06-17 18:09 | MB ---
cc: KAYLAN ZAPIEN MD DATE OF CONSULTATION 06/17/17 HISTORY OF PRESENT ILLNESS This is a 76 year old female, patient of Dr. Moeller. The patient has a history of atrial fibrillation, ablation before in sinus rhythm now, history of chronic obstructive pulmonary disease. Lungs cancer with lobectomy of the left upper lobe. History of appendectomy, IVC filter placement, eye surgery, admitted with progressive shortness of breath, orthopnea and paroxysmal nocturnal dyspnea. He had a bad night and came to the hospital the following day, found to be in congestive heart failure. Cardiac exam is negative. BNP significantly elevated. No chest pain, no syncope or presyncope, no edema. PAST MEDICAL HISTORY As above. SOCIAL HISTORY No alcohol, no drugs, no tobacco. ALLERGIES NO KNOWN DRUG ALLERGIES MEDICATIONS See chart for details. She started on IV Lasix. After the Lasix IV she felt much better. FAMILY HISTORY Noncontributory REVIEW OF SYSTEMS Reviewed, essentially as above. PHYSICAL EXAMINATION GENERAL: Alert and oriented, cooperative not in any acute distress. VITAL SIGNS: Blood pressure 100/60, pulse in the 70s, regular equal bilateral respirations 20, afebrile. HEENT: Unremarkable. HEART: S1, S2. Systolic murmur grade 2/6. LUNGS: Clear at the time of admission. ABDOMEN: No organomegaly, no masses. EXTREMITIES: No edema, pulses intact. CARDIOLOGY STUDIES Electrocardiogram was sinus rhythm with no acute changes. IMAGING STUDIES Chest x-ray - no acute cardiopulmonary process, chronic obstructive pulmonary disease. IMPRESSION AND PLAN Congestive heart failure. Agree with the present management. Echocardiogram reviewed. Continue supportive care. Possibly in about 2-4 hours from now could change the IV Lasix to by mouth. Ambulate after than. Thank you for the consultation. MD RAMIRO Munoz/ /4:51 PM /5:45 PM
[2017-06-17 20:00] VITALS: BP_SYST 110; BP_SYST 158; BP_DIAS 54; BP_DIAS 83; PULSE 71; PULSE 74; RESP 16; RESP 22; TEMP 97.4; TEMP 98.3; O2SAT 93; O2SAT 97
[2017-06-17] MEDS: PRAVASTATIN SOD 20 MG TAB PO SCH (21:15)
[2017-06-18] VITALS (15 sets, daily range): BP systolic 99–122; BP diastolic 47–84; PULSE 57–104; RESP 14–25; TEMP 97.3–98.3; O2SAT 94–100
[2017-06-18] MEDS: LEVOTHYROXINE SODIUM 50 MCG TAB PO SCH (05:50)
[2017-06-18 06:28] LABS: AUTOMATED NEUTROPHIL # 11.1 TH/MM3 (1.8-7.7); BASOPHIL % 0.1 % (0.0-2.0); HEMATOCRIT 24.5 % (35.0-46.0); LYMPH % 3.7 % (9.0-44.0); LYMPHOCYTE # 0.4 TH/MM3 (1.0-4.8); MEAN CELL VOLUME 66.1 FL (80.0-100.0); MEAN CORPUSCULAR HEMOGLOBIN 20.2 PG (27.0-34.0); MEAN CORPUSCULAR HGB CONC 30.6 % (32.0-36.0); MONO % 1.4 % (0.0-8.0); NEUT % 94.8 % (16.0-70.0); PLATELET COUNT 323 TH/MM3 (150-450); RED CELL DISTRIBUTION WIDTH 19.3 % (11.6-17.2); WHITE BLOOD COUNT 11.7 TH/MM3 (4.0-11.0)
[2017-06-18 06:29] LABS: HEMO FLAGS AUTO DIFF
[2017-06-18 06:30] LABS: CHLORIDE 102 MEQ/L (98-107); POTASSIUM 3.8 MEQ/L (3.5-5.1); SODIUM (NA) 141 MEQ/L (136-145)
[2017-06-18 06:32] LABS: INTERNATIONAL NORMALIZED RATIO 1.4 RATIO; PROTHROMBIN TIME - PATIENT 15.2 SEC (9.8-11.6)
[2017-06-18 06:34] LABS: ANION GAP 8 MEQ/L (5-15); BICARBONATE 30.7 MEQ/L (21.0-32.0)
[2017-06-18 07:00] LABS: BLOOD UREA NITROGEN 25 MG/DL (7-18); GLOMERULAR FILTRATION RATE 83 ML/MIN (>89)
[2017-06-18 07:06] LABS: KERATOCYTES OCC (NORMAL); OVALOCYTES 2+ (NORMAL); TARGET CELLS 1+ (NORMAL)
[2017-06-18 07:07] LABS: SCAN/DIFF AUTO DIFF CONFIRMED
[2017-06-18] MEDS ORDERED: RESP: ALBUTEROL 2.5 MG/IPRATROPIUM 0.5 MG NEB (PRN) NEB (08:45)
[2017-06-18] MEDS: CLOPIDOGREL 75 MG TAB PO SCH (09:06)
[2017-06-18] MEDS: PANTOPRAZOLE SOD 40 MG DELAYED RELEASE TAB PO SCH (09:06)
[2017-06-18] MEDS: methylPREDNISolone SOD SUCC 40 MG/1 ML VIAL IV PUSH SCH ×2 (09:07→20:56)
[2017-06-18] MEDS: FUROSEMIDE 40 MG/4 ML VIAL IV PUSH SCH (09:07)
[2017-06-18] MEDS: METOPROLOL TARTRATE 25 MG TAB PO SCH (09:07)
[2017-06-18] MEDS: SODIUM CHLORIDE 0.9% FLUSH 10 ML FLUSH IV FLUSH SCH ×2 (09:07→20:56)
[2017-06-18] MEDS: POTASSIUM CHLORIDE 20 MEQ CONTROLLED RELEASE TAB PO SCH (09:08)
[2017-06-18 09:38] LABS: TRANSFERRIN IRON PROFILE 272 MG/DL (200-360)
[2017-06-18] MEDS ORDERED: IOHEXOL 350 MG/ML 10 ML VIAL (for RAD DIAG) IVCONTRAST ONE (10:56)
--- NOTE | 2017-06-18 11:08 | RADRPT ---
EXAM DATE/TIME: 06/18/2017 10:37 [facility] COMPARISON: CT THORAX W/O CONTRAST, December 22, 2011, 10:54. CHEST SINGLE AP, June 16, 2017, 10:34. INDICATIONS : Short of breath. IV CONTRAST: 75 cc Omnipaque 350 (iohexol) IV RADIATION DOSE: 13.55 CTDIvol (mGy) MEDICAL HISTORY : Cerebrovascular disease. Congestive heart failure. Chronic obstructive pulmonary disease.Lung cancer. Pulmonary embolism. SURGICAL HISTORY : Appendectomy. Lobectomy. ENCOUNTER: Initial ACUITY: 1 week PAIN SCALE: 0/10 LOCATION: chest TECHNIQUE: Volumetric scanning of the chest was performed using a pulmonary embolism protocol MIP images were re constructed. Using automated exposure control and adjustment of the mA and/or kV according to patien t size, radiation dose was kept as low as reasonably achievable to obtain optimal diagnostic quality images. DICOM format image data is available electronically for review and comparison. Follow-up recommendations for detected pulmonary nodules are based at a minimum on nodule size and pa tient risk factors according to Fleischner Society Guidelines. FINDINGS: Evidence of left upper lobectomy again appreciated. Clips are noted in the hilar region. Nonspecific 1.3 1.4 cm precarinal lymph nodes are stable and unchanged. Pulmonary associates the third and fourth order branching without evidence of luminal defect, clot or oligemia. There are bilateral pleural ef fusions which are on the right than the left. Groundglass alveolar infiltrate is noted in the right m iddle lobe and lower lobe with some areas of consolidation and minimally in the right upper lobe with essentially clear left lung field. Findings probably represent an atypical CHF. CONCLUSION: Negative for pulmonary embolization. Bilateral pleural effusions right greater than the l eft. Groundglass airspace disease noted in the right lung particularly middle lobe and lower lobe min imally in the right upper lobe. Findings may represent an atypical CHF. Ki Haywood MD on June 18, 2017 at 11:01 Board Certified Radiologist. This report was verified electronically.
--- NOTE | 2017-06-18 11:12 | HHI.PR ---
Subjective Remarks Hemoglobin 7.5. Patient denies intestinal bleeding or hematemesis. Etiology unclear Patient seen and evaluated today in follow-up for respiratory failure which is improving. CT chest pending for today. Pulmonary follow-up appreciated. Heart rate is improved. Patient slightly dyspneic with minimal exertion. Objective Vitals Vital Signs Date Time Temp Pulse Resp B/P (MAP) Pulse Ox O2 Delivery O2 Flow Rate FiO2 06/18/17 10:41 95 Nasal Cannula 2.00 06/18/17 09:13 77 122/84 (97) 06/18/17 08:12 97.8 60 16 107/55 (72) 99 06/18/17 04:00 97.5 68 25 108/47 (67) 94 06/18/17 00:00 97.5 65 18 114/57 (76) 98 06/17/17 20:00 97.4 71 22 110/54 (72) 93 06/17/17 20:00 74 06/17/17 19:00 97 Nasal Cannula 2.00 06/17/17 16:00 97.2 66 18 100/53 (69) 98 06/17/17 12:00 97.2 67 18 98/50 (66) 97 I/O 06/17/17 06/17/17 06/17/17 06/18/17 06/18/17 06/18/17 07:00 15:00 23:00 07:00 15:00 23:00 Intake Total 240 ml 480 ml 480 ml Output Total 1400 ml 700 ml 250 ml Balance -1160 ml -220 ml 230 ml Intake Oral 240 ml 480 ml 480 ml Output Urine Total 1400 ml 700 ml 250 ml Stool Total 0 ml # Voids 5 # Bowel Movements 2 0 Result Diagram: 06/18/17 0550 06/18/17 0550 Imaging Last Impressions Chest X-Ray 06/16/17 1029 Signed Impressions: Service Date/Time: Friday, June 16, 2017 10:34 - CONCLUSION: Moderate congestive failure without effusion. Adonis Soriano MD FACR Objective Remarks GENERAL: This is a well-nourished, well-developed patient, pursed lip breathing CARDIOVASCULAR: Regular rate and rhythm without murmurs, gallops, or rubs. RESPIRATORY: decreased breath sounds bilaterally. No wheezes, rales, or rhonchi. GASTROINTESTINAL: Abdomen soft, non-tender, nondistended. Normal active bowel sounds MUSCULOSKELETAL: Extremities without clubbing, cyanosis, or edema. NEURO: Alert & Oriented x4 to person, place, time, situation. Moves all ext x4 A/P Problem List: (1) History of COPD ICD Code: Z87.09 - Personal history of other diseases of the respiratory system Status: Acute Plan: With mild exacerbation Continue bronchodilator, IV steroids CT thorax pending (2) Hypoxemia ICD Code: R09.02 - Hypoxemia Status: Acute (3) Atrial fibrillation and flutter ICD Code: I48.91 - Unspecified atrial fibrillation; I48.92 - Unspecified atrial flutter Status: Chronic Plan: Patient has been on warfarin with elevated INR. Her medications have been held and in fact she held "all of her medications" for the last 10 days. Rate is currently controlled, INR is 1.4 today cont metoprolol (4) Elevated troponin ICD Code: R74.8 - Abnormal levels of other serum enzymes Plan: With SOB and Increased WOB ? anginal equivalent Cath previously showed NL coronaries Cont BB, warfarin/plavix (allergy to enoxaparin) endoscopy when stable (may be done outpatient) (5) Anemia ICD Code: D64.9 - Anemia, unspecified Plan: Iron deficiency Continue repeat hemoglobin, transfuse 1 unit packed red blood cells Patient's warfarin will continue for now. IV iron Silke Norwood MD Jun 18, 2017 11:11
[2017-06-18] MEDS ORDERED: SODIUM CHLOR 0.9% 250 ML INJ 250 ML IV ONE (11:15)
[2017-06-18] MEDS ORDERED: diphenhydrAMINE HCL 25 MG CAP PO PRN (11:15)
[2017-06-18] MEDS ORDERED: FUROSEMIDE 20 MG/2 ML VIAL IV PRN (11:15)
[2017-06-18] MEDS ORDERED: ACETAMINOPHEN 325 MG TAB PO PRN (11:15)
[2017-06-18 12:06] LABS: REVIEW FLAG FINAL
[2017-06-18] MEDS: IRON SUCROSE INJ 100 MG in SODIUM CHLORIDE 0.9% INJ 100 ML IV SCH (12:25)
[2017-06-18] MEDS: RESP: ALBUTEROL 2.5 MG/IPRATROPIUM 0.5 MG NEB (SCH) NEB ×2 (13:53→19:27)
[2017-06-18] MEDS: WARFARIN SOD 5 MG TAB PO SCH (15:27)
[2017-06-18] MEDS ORDERED: FUROSEMIDE 20 MG TAB PO SCH (18:00)
[2017-06-18] MEDS: PRAVASTATIN SOD 20 MG TAB PO SCH (20:55)
[2017-06-19] VITALS: BP 117/54; PULSE 69; RESP 16; TEMP 97.5; O2SAT 96
[2017-06-19 04:00] VITALS: BP 125/63; PULSE 63; RESP 20; TEMP 97.5; O2SAT 95
[2017-06-19] MEDS: LEVOTHYROXINE SODIUM 50 MCG TAB PO SCH (06:16)
[2017-06-19] MEDS: RESP: ALBUTEROL 2.5 MG/IPRATROPIUM 0.5 MG NEB (SCH) NEB (07:39)
[2017-06-19 07:41] VITALS: O2SAT 96
[2017-06-19 08:00] VITALS: BP 90/52; PULSE 68; RESP 18; TEMP 98.2; O2SAT 98
[2017-06-19 08:24] LABS: AUTOMATED NEUTROPHIL # 10.3 TH/MM3 (1.8-7.7); BASOPHIL # 0.1 TH/MM3 (0-0.2); BASOPHIL % 0.6 % (0.0-2.0); HEMATOCRIT 28.1 % (35.0-46.0); LYMPH % 4.4 % (9.0-44.0); LYMPHOCYTE # 0.5 TH/MM3 (1.0-4.8); MEAN CELL VOLUME 66.9 FL (80.0-100.0); MEAN CORPUSCULAR HEMOGLOBIN 20.3 PG (27.0-34.0); MEAN CORPUSCULAR HGB CONC 30.4 % (32.0-36.0); MONO % 3.9 % (0.0-8.0); NEUT % 91.1 % (16.0-70.0); PLATELET COUNT 323 TH/MM3 (150-450); RED CELL DISTRIBUTION WIDTH 18.9 % (11.6-17.2); WHITE BLOOD COUNT 11.3 TH/MM3 (4.0-11.0)
[2017-06-19 08:35] LABS: HEMO FLAGS AUTO DIFF
[2017-06-19 09:22] LABS: OVALOCYTES 1+ (NORMAL); ROULEAUX PRESENT (NORMAL); SCAN/DIFF AUTO DIFF CONFIRMED; TARGET CELLS 1+ (NORMAL)
[2017-06-19 09:46] VITALS: BP 117/65; PULSE 68; RESP 18
[2017-06-19] MEDS: SODIUM CHLORIDE 0.9% FLUSH 10 ML FLUSH IV FLUSH SCH (09:50)
[2017-06-19] MEDS: methylPREDNISolone SOD SUCC 40 MG/1 ML VIAL IV PUSH SCH (09:51)
[2017-06-19] MEDS: POTASSIUM CHLORIDE 20 MEQ CONTROLLED RELEASE TAB PO SCH (09:51)
[2017-06-19] MEDS: CLOPIDOGREL 75 MG TAB PO SCH (09:52)
[2017-06-19] MEDS: PANTOPRAZOLE SOD 40 MG DELAYED RELEASE TAB PO SCH (09:52)
[2017-06-19] MEDS: METOPROLOL TARTRATE 25 MG TAB PO SCH (09:52)
[2017-06-19] MEDS ORDERED: IPRASOL NEB (11:29)
--- NOTE | 2017-06-19 11:30 | HHI.PR ---
Subjective Remarks Patient seen and evaluated in follow-up for CHF, new onset as well as for COPD. Care plan discussed with patient, nursing team and spouse at bedside. Respiratory status is improved. Objective Vitals Vital Signs Date Time Temp Pulse Resp B/P (MAP) Pulse Ox O2 Delivery O2 Flow Rate FiO2 06/19/17 09:46 68 18 117/65 (82) 06/19/17 08:00 68 06/19/17 08:00 98.2 68 18 90/52 (65) 98 06/19/17 07:41 96 21 06/19/17 07:00 98 Nasal Cannula 2.00 06/19/17 04:00 97.5 63 20 125/63 (83) 95 06/19/17 00:00 97.5 69 16 117/54 (75) 96 06/18/17 20:00 98.3 64 24 99/55 (70) 94 06/18/17 20:00 104 06/18/17 19:28 97 Nasal Cannula 1.00 06/18/17 19:00 94 Nasal Cannula 2.00 06/18/17 16:33 97.6 58 14 113/53 98 06/18/17 16:16 97.6 58 16 106/52 (70) 96 06/18/17 16:15 97.6 57 14 106/52 97 06/18/17 16:03 97.5 58 14 108/53 97 06/18/17 15:48 64 06/18/17 15:46 97.7 58 14 106/47 97 06/18/17 15:32 97.3 61 14 102/48 96 06/18/17 13:56 99 Nasal Cannula 2.00 06/18/17 13:17 98.2 61 18 104/52 (69) 100 I/O 06/18/17 06/18/17 06/18/17 06/19/17 06/19/17 06/19/17 07:00 15:00 23:00 07:00 15:00 23:00 Intake Total 480 ml 2980 ml 360 ml Output Total 250 ml Balance 230 ml 2980 ml 360 ml Intake Oral 480 ml 2480 ml 360 ml Packed Cells 400 ml Blood Product IV Normal Saline Flush 100 ml Output Urine Total 250 ml # Voids 2 3 # Bowel Movements 0 1 0 Result Diagram: 06/19/17 0750 06/18/17 0550 Objective Remarks GENERAL: This is a well-nourished, well-developed patient, pursed lip breathing CARDIOVASCULAR: Regular rate and rhythm without murmurs, gallops, or rubs. RESPIRATORY: decreased breath sounds bilaterally. No wheezes, rales, or rhonchi. GASTROINTESTINAL: Abdomen soft, non-tender, nondistended. Normal active bowel sounds MUSCULOSKELETAL: Extremities without clubbing, cyanosis, or edema. NEURO: Alert & Oriented x4 to person, place, time, situation. Moves all ext x4 A/P Problem List: (1) History of COPD ICD Code: Z87.09 - Personal history of other diseases of the respiratory system Status: Acute Plan: With mild exacerbation Continue bronchodilator, po steroids CT thorax consistent with congestive heart failure (2) Hypoxemia ICD Code: R09.02 - Hypoxemia Status: Acute Plan: Walk test pending to determine need for home O2 (3) Atrial fibrillation and flutter ICD Code: I48.91 - Unspecified atrial fibrillation; I48.92 - Unspecified atrial flutter Status: Chronic Plan: Patient has been on warfarin with elevated INR. Her medications have been held and in fact she held "all of her medications" for the last 10 days. Rate is currently controlled, INR is pending today cont metoprolol (4) Elevated troponin ICD Code: R74.8 - Abnormal levels of other serum enzymes Plan: With SOB and Increased WOB ? anginal equivalent Cath previously showed NL coronaries Cont BB, warfarin/plavix (allergy to enoxaparin) endoscopy when stable (may be done outpatient) (5) Anemia ICD Code: D64.9 - Anemia, unspecified Plan: Iron deficiency Continue repeat hemoglobin, transfused 1 unit packed red blood cells and hg better Patient's warfarin will continue for now. IV iron completed Discharge Planning home pending walk test Silke Norwood MD Jun 19, 2017 11:30
[2017-06-19] MEDS ORDERED: PRED20 PO (11:32)
[2017-06-19] MEDS ORDERED: FERR325C PO (11:33)
--- NOTE | 2017-06-19 11:35 | HHI.DS ---
Discharge Summary Admission Date Jun 16, 2017 at 12:17 Discharge Date: Jun 19, 2017 Admitting Diagnosis new onset chf, hypoxemia, hyperglycemia, copd, hx of lung ca (1) History of COPD ICD Code: Z87.09 - Personal history of other diseases of the respiratory system Status: Acute (2) Hypoxemia ICD Code: R09.02 - Hypoxemia Status: Acute (3) Atrial fibrillation and flutter ICD Code: I48.91 - Unspecified atrial fibrillation; I48.92 - Unspecified atrial flutter Status: Chronic (4) Elevated troponin ICD Code: R74.8 - Abnormal levels of other serum enzymes (5) Anemia ICD Code: D64.9 - Anemia, unspecified Procedures none Brief History - From Admission This patient is a 76-year-old female with a history of COPD and atrial fibrillation. She has had 2 weeks of increased dyspnea on exertion and orthopnea. She notes she saw her primary care physician with the same symptoms and was given a breo inhaler with minimal improvement. She had no chest pain, no edema and noted that she began to feel dizzy. She came to the emergency room was found to be 70% on room air and given some IV Lasix with BiPAP placement. Patient did better and had diuresis, the emergency room. Her oxygenation improved. She admits she has had pursed lip breathing the last weeks and thought that it was COPD. She quit smoking in the late . Patient's been admitted to the hospital for respiratory failure CBC/BMP: 06/19/17 0750 06/18/17 0550 Significant Findings Laboratory Tests Test 06/16/17 16:15 06/17/17 14:25 06/18/17 05:50 06/18/17 11:50 Hemoglobin A1c 6.4 % (4.3-6.0) Troponin I 0.53 NG/ML (0.02-0.05) 0.31 NG/ML (0.02-0.05) White Blood Count 11.7 TH/MM3 (4.0-11.0) Red Blood Count 3.70 MIL/MM3 (4.00-5.30) Hemoglobin 7.5 GM/DL (11.6-15.3) 7.7 GM/DL (11.6-15.3) Hematocrit 24.5 % (35.0-46.0) 26.0 % (35.0-46.0) Mean Corpuscular Volume 66.1 FL (80.0-100.0) Mean Corpuscular Hemoglobin 20.2 PG (27.0-34.0) Mean Corpuscular Hemoglobin Concent 30.6 % (32.0-36.0) Red Cell Distribution Width 19.3 % (11.6-17.2) Neutrophils (%) (Auto) 94.8 % (16.0-70.0) Lymphocytes (%) (Auto) 3.7 % (9.0-44.0) Neutrophils # (Auto) 11.1 TH/MM3 (1.8-7.7) Lymphocytes # (Auto) 0.4 TH/MM3 (1.0-4.8) Target Cells 1+ (NORMAL) Ovalocytes 2+ (NORMAL) Keratocytes OCC (NORMAL) Prothrombin Time 15.2 SEC (9.8-11.6) Blood Urea Nitrogen 25 MG/DL (7-18) Random Glucose 191 MG/DL (74-106) Estimat Glomerular Filtration Rate 83 ML/MIN (>89) Iron Level 13 MCG/DL (50-170) Percent Iron Saturation 3.4 % (20-50) Test 06/19/17 07:50 White Blood Count 11.3 TH/MM3 (4.0-11.0) Hemoglobin 8.5 GM/DL (11.6-15.3) Hematocrit 28.1 % (35.0-46.0) Mean Corpuscular Volume 66.9 FL (80.0-100.0) Mean Corpuscular Hemoglobin 20.3 PG (27.0-34.0) Mean Corpuscular Hemoglobin Concent 30.4 % (32.0-36.0) Red Cell Distribution Width 18.9 % (11.6-17.2) Neutrophils (%) (Auto) 91.1 % (16.0-70.0) Lymphocytes (%) (Auto) 4.4 % (9.0-44.0) Neutrophils # (Auto) 10.3 TH/MM3 (1.8-7.7) Lymphocytes # (Auto) 0.5 TH/MM3 (1.0-4.8) Basophilic Stippling FAINT (NORMAL) Target Cells 1+ (NORMAL) Ovalocytes 1+ (NORMAL) Rouleau PRESENT (NORMAL) Imaging Last Impressions CT Angiography 06/18/17 0000 Signed Impressions: Service Date/Time: Sunday, June 18, 2017 10:37 - CONCLUSION: Negative for pulmonary embolization. Bilateral pleural effusions right greater than the left. Groundglass airspace disease noted in the right lung particularly middle lobe and lower lobe minimally in the right upper lobe. Findings may represent an atypical CHF. Ki Haywood MD Chest X-Ray 06/16/17 1029 Signed Impressions: Service Date/Time: Friday, June 16, 2017 10:34 - CONCLUSION: Moderate congestive failure without effusion. Adonis Soriano MD FACR PE at Discharge GENERAL: This is a well-nourished, well-developed patient, pursed lip breathing CARDIOVASCULAR: Regular rate and rhythm without murmurs, gallops, or rubs. RESPIRATORY: decreased breath sounds bilaterally. No wheezes, rales, or rhonchi. GASTROINTESTINAL: Abdomen soft, non-tender, nondistended. Normal active bowel sounds MUSCULOSKELETAL: Extremities without clubbing, cyanosis, or edema. NEURO: Alert & Oriented x4 to person, place, time, situation. Moves all ext x4 Pt update on day of discharge Please see daily progress note Hospital Course Patient is a 76-year-old female with new onset CHF. She was treated for exacerbation of the same. She does have COPD as well for which she was treated. Patient did well with medical management and fluid balance. She was seen by cardiology and pulmonology. Heart rate remained stable. She did have some evidence of severe iron deficiency required anemia with treatment with iron IV as well as auto transfusion. The patient is recommended for outpatient evaluation by endoscopy. Pt Condition on Discharge: Good Discharge Disposition: Discharge Home Discharge Time: > 30 minutes Discharge Instructions DIET: Follow Instructions for: Coumadin (Warfarin) Diet Activities you can perform: Regular-No Restrictions Follow up Referrals: Cardiology - 2 Weeks PCP Follow-up - 1 Week Pulmonology - 06/25/17 New Medications: Ferrous Sulfate (Iron) 325 Mg Cap 325 MG PO BIDPC for Nutritional Supplement, #60 TAB 0 Refills Prednisone (Prednisone) 20 Mg Tab 20 MG PO DAILY for copd, #6 TAB 0 Refills Ipratropium-Albuterol Neb (Duoneb) 0.5-2.5 Mg/3 Ml Neb 1 AMPULE NEB TID NEB PRN for DYSPNEA, #90 ML Continued Medications: Clopidogrel (Plavix) 75 Mg Tab 75 MG PO DAILY for Blood Clot Prevention, #30 TAB 0 Refills Furosemide (Furosemide) 40 Mg Tab 40 MG PO BID, #60 TAB 0 Refills Levothyroxine (Levothyroxine) 50 Mcg Tab 50 MCG PO DAILY for Thyroid, #30 TAB 0 Refills Metoprolol Tartrate (Metoprolol Tartrate) 25 Mg Tab 25 MG PO DAILY, #30 TAB 0 Refills Pantoprazole (Pantoprazole) 40 Mg Tab 40 MG PO DAILY for Reflux, #30 TAB 0 Refills Potassium Chloride ER (Potassium Chloride ER) 20 Meq Tab 20 MEQ PO DAILY for Electrolyte Replacement, #30 TAB 0 Refills Simvastatin (Simvastatin) 10 Mg Tab 10 MG PO HS for Cholesterol Management, #30 TAB 0 Refills Warfarin (Warfarin) 5 Mg Tab 5 MG PO DAILY for Blood Clot Prevention, #30 TAB 0 Refills Silke Norwood MD Jun 19, 2017 11:35
[2017-06-19] MEDS: IRON SUCROSE INJ 100 MG in SODIUM CHLORIDE 0.9% INJ 100 ML IV SCH (11:57)
[2017-06-19 12:00] VITALS: BP 118/57; PULSE 66; RESP 18; TEMP 97.6; O2SAT 93
--- NOTE | 2017-06-19 16:13 | MB ---
cc: Neal NAGY M.D. DATE OF CONSULTATION: 06/19/2017. REASON FOR CONSULTATION: HISTORY OF PRESENT ILLNESS: Ms. Heard is a 76-year-old white female with a prior history of COPD and atrial fibrillation. I had seen her in the past but not within the last roughly year and a half. She was lost to followup. When I last saw her, she was being evaluated at the [facility] for a possible biopsy of some ground glass densities in her lung. She presented now with a 2-week history of increasing shortness of breath and congestion. She was seen by Dr. Eligio betancur for a history of atrial fibrillation and flutter status post ablation twice in the past but her cardiovascular status was felt to be stable. Because of the persistent dyspnea and some chest tightness, she was brought into the emergency room and was admitted for further evaluation. She has been diuresed, and at the time I did this consultation, she was feeling better. She had had no purulent sputum or pleuritic chest pain. No notable fever. She has had no vomiting, although she had been nauseated. No recent change in bowel habits. Not aware of fever. She had had no hemoptysis. PAST MEDICAL HISTORY: 1. Atrial fibrillation. 2. COPD. 3. Thyroid disorder. 4. Prior appendectomy. 5. IVC filter. 6. Cardiac ablations. 7. A lung resection. ALLERGIES: Lovenox. SOCIAL HISTORY: Prior smoker, quit smoking about 20-30 years ago. Smoked for about 30 years. living with her . Occasional alcohol but not to excess. FAMILY HISTORY: Most of it is unknown. Her mother did have lung cancer. MEDICATIONS: Reviewed in the electronic medical record. PHYSICAL EXAMINATION: VITAL SIGNS: 97 degrees, blood pressure 114/80, pulse is 70, respirations 18, sat 96% on room air. HEAD, EYES, EARS, NOSE, THROAT: Her sclerae are anicteric. Pharynx is clear. NECK: Neck veins are flat. CHEST: Minimally congested with faint rales at the bases. No congestion or wheezing. HEART: Irregular rhythm. Soft systolic murmur. No audible S3. EXTREMITIES: No significant edema or calf tenderness. Ms. Heard presented with increasing shortness of breath but not obvious heart failure. She had a chest x-ray which revealed some mild interstitial prominence and because of the chest discomfort. The question was raised whether she had pneumonia, and in light of the prior history of thromboembolism, a CTA was performed of the lung which was negative for pulmonary embolism but she had bilateral pleural effusions with some ground glass densities particularly in the mid lung savage possible atypical congestive heart failure. Her white count was mildly elevated at 11,000. Arterial blood gas on 2 liters: Her pO2 was 67, pH 7.3, pCO2 of 44. BUN was 11, creatinine 0.7. BNP was elevated at 528. INR was nontherapeutic, and she had been on Coumadin as an outpatient but had held her medicines for the last two weeks for some reason. DISCUSSION: Ms. Heard presented with increasing shortness of breath. At the time of this dictation, she has been discharged. She responded really quite quickly to diuretics. There was no evidence of thromboembolic disease. Doubtful that she had pneumonia she responded so quickly to diuretics. The patient was discharged with iron, albuterol and Atrovent for her nebulizer, 20 milligrams of prednisone a day for six days, diuretics as Lasix and resumed her Coumadin. 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 I did not get to see her before she was discharged. R. MD CHERYL Alvarez/TAYLOR /3:01 PM /4:00 PM
== END 2017-06-19 13:55 | disposition home or self-care (01) | DRG 189 ==
LOC: PHED 10:18 → PHEDA 12:17 → PH5A 13:46
PROVIDERS: ADMIT Hospitalist; ATTEND Hospitalist
PROC: 30233N1 Transfusion of Nonautologous Red Blood Cells into Peripheral Vein, Percutaneous Approach (ICD-10-PCS; principal; 2017-06-18)
DX: J96.01 Acute respiratory failure with hypoxia (principal); I50.41 Acute combined systolic (congestive) and diastolic (congestive) heart failure; I48.91 Unspecified atrial fibrillation; E11.9 Type 2 diabetes mellitus without complications; J44.1 Chronic obstructive pulmonary disease with (acute) exacerbation; D50.9 Iron deficiency anemia, unspecified; F41.9 Anxiety disorder, unspecified; E87.6 Hypokalemia; K21.9 Gastro-esophageal reflux disease without esophagitis; E78.00 Pure hypercholesterolemia, unspecified; Z85.118 Personal history of other malignant neoplasm of bronchus and lung; Z87.891 Personal history of nicotine dependence; Z79.01 Long term (current) use of anticoagulants; Z86.73 Personal history of transient ischemic attack (TIA), and cerebral infarction without residual deficits; Z79.02 Long term (current) use of antithrombotics/antiplatelets
CPT/HCPCS: 36430; 36600; 71010; 71275; 80048; 80053; 82550; 82805; 83036; 83540; 83550; 83880; 84443; 84484; 85014; 85018; 85025; 85610; 85730; 86850; 86900; 86901; 86920; 90686; 93005; 93306; 94002; 94620; 94640; 94664; 96374; 96375; J1756; J1940; J2060; J2920; J2930; J7050; J7613; P9016; Q2038; Q9967

== ENCOUNTER 2017-06-21 09:16 | Observation (INO) | payer MEDICARE, BC, OTHER ==
[~2017-06-21] VITALS: Ht 170.2 cm; Wt 77.9 kg
[2017-06-21] VITALS (7 sets, daily range): BP systolic 105–147; BP diastolic 49–71; PULSE 68–96; RESP 18–24; TEMP 97.7–98.1; O2SAT 94–99
[~2017-06-21 09:16] MED LIST changes: +FERR325C PO; +FURO40TA PO; +IPRASOL NEB; +LEVO50TA4 PO; +METO25TA3 PO; -OMEP20TA PO; +PANT40TA3 PO; +POTA-163 PO; +PRED20 PO; -TRAM50TA PO; +WARF-23 PO
[2017-06-21] MEDS ORDERED: SODIUM CHLORIDE 0.9% FLUSH 10 ML FLUSH IVF PRN (09:30)
[2017-06-21] MEDS ORDERED: methylPREDNISolone SOD SUCC 125 MG/2 ML VIAL IV PUSH ONE (09:30)
[2017-06-21] MEDS: RESP: ALBUTEROL 2.5 MG/IPRATROPIUM 0.5 MG NEB (SCH) INH ×2 (09:39→09:40)
--- NOTE | 2017-06-21 09:47 | PD ---
HPI Chief Complaint: Respiratory Symptoms Time Seen by Provider: 09:20 Travel History International Travel<30 days: No Contact w/Intl Traveler<30days: No Traveled to known affect area: No History of Present Illness HPI 76 yo F c/o shortness of breath, orthopnea and dyspnea on exertion. She was recently diagnosed with CHF and was discharged from here two days prior. Upon discharge she felt good and had ambulated throughout the fifth floor without dyspnea. No cp, n/v, or fever. Pt was unable to assemble her nebulizer at home due to complexity of the machine. Pt otherwise compliant with medication. PFSH Past Medical History Hx Anticoagulant Therapy: Yes Arthritis: Yes (rt knee) Asthma: No Autoimmune Disease: No Anxiety: No Depression: No Heart Rhythm Problems: Yes (RVR) Cancer: Yes (lung, breast sara begnin tumors ) Cardiovascular Problems: Yes High Cholesterol: Yes Chemotherapy: No Chest Pain: Yes Congestive Heart Failure: Yes COPD: Yes Cerebrovascular Accident: Yes Diabetes: Yes (NO MEDS-BORDERLINE) Diminished Hearing: No Endocrine: No Genitourinary: No Immune Disorder: No Implanted Vascular Access Dvce: Yes Musculoskeletal: No Neurologic: Yes (2000 CVA) Psychiatric: No Reproductive: No Respiratory: Yes Immunizations Current: Yes Migraines: No Radiation Therapy: No Seizures: No Sleep Apnea: No Thyroid Disease: Yes ?: Not Menopausal: Yes Past Surgical History Abdominal Surgery: Yes (APPENECTOMY, FILTER RIGHT GROIN FOR CLOTS) Body Medical Devices: FILTER L GROIN Cardiac Surgery: Yes (CARDIAC ABLATION X2) Ear Surgery: No Eye Surgery: Yes (LASIX SX RIGHT EYE) Genitourinary Surgery: No Gynecologic Surgery: No Neurologic Surgery: Yes (BRAIN CLOT (CATHERIZATION)) Oral Surgery: No Thoracic Surgery: Yes (left upper lobectomy) Other Surgery: Yes (BREAST BENIGN TUMOR REMOVED) Social History Alcohol Use: Yes (2 drinks a day) Tobacco Use: No (QUIT 1989) Substance Use: No Allergies-Medications (Allergen,Severity, Reaction): Coded Allergies: enoxaparin (Unverified Allergy, Severe, HIVES, 06/21/17) Reported Meds & Prescriptions Reported Meds & Active Scripts Active Iron (Ferrous Sulfate) 325 Mg Cap 325 Mg PO BIDPC Prednisone 20 Mg Tab 20 Mg PO DAILY Duoneb (Ipratropium-Albuterol Neb) 0.5-2.5 Mg/3 Ml Neb 1 Ampule NEB TID NEB PRN Reported Potassium Chloride ER (Potassium Chloride) 20 Meq Tab 20 Meq PO DAILY Pantoprazole (Pantoprazole Sodium) 40 Mg Tab 40 Mg PO DAILY Metoprolol Tartrate 25 Mg Tab 25 Mg PO DAILY Levothyroxine (Levothyroxine Sodium) 50 Mcg Tab 50 Mcg PO DAILY Warfarin 5 Mg Tab 5 Mg PO DAILY Furosemide 40 Mg Tab 40 Mg PO BID Plavix (Clopidogrel Bisulfate) 75 Mg Tab 75 Mg PO DAILY Simvastatin 10 Mg Tab 10 Mg PO HS Review of Systems Except as stated in HPI: all other systems reviewed are Neg General / Constitutional: No: Fever Cardiovascular: Positive: Dyspnea on exertion Respiratory: Positive: Orthopnea Physical Exam Narrative GENERAL: 76 yo F, WNWD, speaking full sentences SKIN: Warm and dry. HEAD: Atraumatic. Normocephalic. EYES: Pupils equal and round. No scleral icterus. No injection or drainage. ENT: No nasal bleeding or discharge. Mucous membranes pink and moist. NECK: Trachea midline. No JVD. CARDIOVASCULAR: Regular rate and rhythm. RESPIRATORY: Wheezing present bilaterally. No tachypnea/dyspnea at rest. GASTROINTESTINAL: Abdomen soft, non-tender, nondistended. Hepatic and splenic margins not palpable. MUSCULOSKELETAL: Extremities without clubbing, cyanosis, or edema. No obvious deformities. NEUROLOGICAL: Awake and alert. No obvious cranial nerve deficits. Motor grossly within normal limits. Five out of 5 muscle strength in the arms and legs. Normal speech. PSYCHIATRIC: Appropriate mood and affect; insight and judgment normal. Data Data Last Documented VS Vital Signs Date Time Temp Pulse Resp B/P (MAP) Pulse Ox O2 Delivery O2 Flow Rate FiO2 06/21/17 09:40 94 Room Air 06/21/17 09:40 68 20 06/21/17 09:36 98.1 147/71 (96) VS reviewed Orders Orders Complete Blood Count With Diff (06/21/17 09:26) Basic Metabolic Panel (Bmp) (06/21/17:26) B-Type Natriuretic Peptide (06/21/17 09:26) Iv Access Insert/Monitor (06/21/17 09:26) Ecg Monitoring (06/21/17:26) Oximetry (06/21/17:26) Oxygen Administration (06/21/17:26) Chest, Single Ap (06/21/17 09:26) Sodium Chloride 0.9% Flush (Ns Flush) (06/21/17 09:30) Methylprednisolone So Succ Inj (Solumedr (06/21/17 09:30) Albuterol-Ipratropium Neb (Duoneb Neb) (06/21/17 09:30) Potassium Chloride (Kcl) (06/21/17 10:45) Furosemide Inj (Lasix Inj) (06/21/17 11:00) Labs Laboratory Tests Test 06/21/17 10:10 White Blood Count 13.3 TH/MM3 Red Blood Count 4.85 MIL/MM3 Hemoglobin 9.5 GM/DL Hematocrit 32.6 % Mean Corpuscular Volume 67.3 FL Mean Corpuscular Hemoglobin 19.6 PG Mean Corpuscular Hemoglobin Concent 29.2 % Red Cell Distribution Width 19.7 % Platelet Count 320 TH/MM3 Mean Platelet Volume 8.4 FL Neutrophils (%) (Auto) 76.0 % Lymphocytes (%) (Auto) 12.2 % Monocytes (%) (Auto) 9.9 % Eosinophils (%) (Auto) 0.3 % Basophils (%) (Auto) 1.6 % Neutrophils # (Auto) 10.2 TH/MM3 Lymphocytes # (Auto) 1.6 TH/MM3 Monocytes # (Auto) 1.3 TH/MM3 Eosinophils # (Auto) 0.0 TH/MM3 Basophils # (Auto) 0.2 TH/MM3 CBC Comment AUTO DIFF Blood Urea Nitrogen 20 MG/DL Creatinine 0.66 MG/DL Random Glucose 99 MG/DL Calcium Level 8.5 MG/DL Sodium Level 142 MEQ/L Potassium Level 3.0 MEQ/L Chloride Level 104 MEQ/L Carbon Dioxide Level 30.2 MEQ/L Anion Gap 8 MEQ/L Estimat Glomerular Filtration Rate 88 ML/MIN B-Type Natriuretic Peptide 646 PG/ML MDM Medical Decision Making Medical Screen Exam Complete: Yes Emergency Medical Condition: Yes Medical Record Reviewed: Yes Differential Diagnosis COPD, CHF, anemia, renal failure, pna, pe Narrative Course CBC & BMP Diagram 06/21/17 10:10 Calcium Level 8.5 BNP 646 Last 24 hours Impressions Chest X-Ray 06/21/17 09 Signed Impressions: Service Date/Time: Wednesday, June 21, 2017 10:01 - CONCLUSION: 1. Probable CHF. Unchanged from previous of 06/16/17. Loyd Soriano MD Pt received 3 rounds nebs and Solumedrol with subjective improvement reported. One lap around the O ED and sats dropped to 86%. 2L NC started. IV Lasix given. d/w Dr Norwood Diagnosis Primary Impression: CHF (congestive heart failure) Qualified Codes: I50.20 - Unspecified systolic (congestive) heart failure Additional Impression: Hypoxia Admitting Information Admitting Physician Requests: Admit Med/Other Pt SpecificInfo: No Change to Meds Loyd Vargas MD Jun 21, 2017 09:47
--- NOTE | 2017-06-21 10:11 | RADRPT ---
EXAM DATE/TIME: 06/21/2017 10:01 [facility] COMPARISON: CHEST SINGLE AP, June 16, 2017, 10:34. INDICATIONS : Short of breath. MEDICAL HISTORY : Cardiovascular disease. Chronic obstructive pulmonary disease. SURGICAL HISTORY : Cardiac ablation ENCOUNTER: Initial ACUITY: 2 days PAIN SCORE: 0/10 LOCATION: Bilateral chest FINDINGS: The heart is enlarged. There are bilateral pleural effusions and diffuse interstitial prominence. Exa m would suggest congestive failure. The changes are similar to the prior dated 06/16/17. The visualized bony structures demonstrate degenerative changes but are otherwise intact. CONCLUSION: 1. Probable CHF. Unchanged from previous of 06/16/17. Loyd Soriano MD on June 21, 2017 at 10:09 Board Certified Radiologist. This report was verified electronically.
[2017-06-21 10:22] LABS: AUTOMATED NEUTROPHIL # 10.2 TH/MM3 (1.8-7.7); BASOPHIL # 0.2 TH/MM3 (0-0.2); BASOPHIL % 1.6 % (0.0-2.0); EOSINOPHIL % 0.3 % (0.0-4.0); HEMATOCRIT 32.6 % (35.0-46.0); LYMPH % 12.2 % (9.0-44.0); LYMPHOCYTE # 1.6 TH/MM3 (1.0-4.8); MEAN CELL VOLUME 67.3 FL (80.0-100.0); MEAN CORPUSCULAR HEMOGLOBIN 19.6 PG (27.0-34.0); MONO % 9.9 % (0.0-8.0); PLATELET COUNT 320 TH/MM3 (150-450); RED BLOOD COUNT 4.85 MIL/MM3 (4.00-5.30); RED CELL DISTRIBUTION WIDTH 19.7 % (11.6-17.2); WHITE BLOOD COUNT 13.3 TH/MM3 (4.0-11.0)
[2017-06-21 10:26] LABS: BICARBONATE 30.2 MEQ/L (21.0-32.0)
[2017-06-21 10:36] LABS: HEMO FLAGS AUTO DIFF; MEAN CORPUSCULAR HGB CONC 29.2 % (32.0-36.0)
[2017-06-21] MEDS ORDERED: POTASSIUM CHLORIDE 20 MEQ CONTROLLED RELEASE TAB PO ONE (10:45)
[2017-06-21] MEDS ORDERED: FUROSEMIDE 40 MG/4 ML VIAL IV PUSH ONE (11:00)
[2017-06-21 11:28] LABS: OVALOCYTES 2+ (NORMAL); TEARDROP RBCS 1+ (NORMAL)
[2017-06-21 11:29] LABS: PLATELET ESTIMATE SMEAR NORMAL (NORMAL); PLATELET MORPHOLOGY NORMAL (NORMAL); SCAN/DIFF AUTO DIFF CONFIRMED
[2017-06-21] MEDS ORDERED: NALOXONE HCL 0.4 MG/ML AMP IV PUSH PRN (12:30)
[2017-06-21] MEDS ORDERED: SODIUM CHLORIDE 0.9% FLUSH 10 ML FLUSH IV FLUSH PRN (12:30)
--- NOTE | 2017-06-21 12:54 | HHI.PR ---
Subjective Remarks H and P reviewed from 06/16, No new updates other than as below Patient came to the ER with increased SOB and anxiety as she was unable to get her nebulizer hooked up. She took medications as prescribed. She was hypoxemic in the ER after she received 3 rounds nebs and Solumedrol. She improved subjectively but her sats dropped to 86%. She was readmitted. She has received some lasix and has felt better. HEr cxray reviewed by me is consistent with CHF. Her echo done 06/17 shows systolic and diastolic CHF. Objective Vital Signs Date Time Temp Pulse Resp B/P (MAP) Pulse Ox O2 Delivery O2 Flow Rate FiO2 06/21/17 09:40 94 Room Air 06/21/17 09:40 94 06/21/17 09:40 68 20 94 Room Air 06/21/17 09:36 98.1 68 24 147/71 (96) 94 Result Diagram: 06/21/17 1010 06/21/17 1010 Imaging Last Impressions Chest X-Ray 06/21/17 09 Signed Impressions: Service Date/Time: Wednesday, June 21, 2017 10:01 - CONCLUSION: 1. Probable CHF. Unchanged from previous of 06/16/17. Loyd Soriano MD Procedures none Objective Remarks GENERAL: This is a well-nourished, well-developed patient, sob with exertion CARDIOVASCULAR: Regular rate and rhythm without murmurs, gallops, or rubs. RESPIRATORY: Clear to auscultation. Breath sounds equal bilaterally. No wheezes , rales, or rhonchi. GASTROINTESTINAL: Abdomen soft, non-tender, nondistended. Normal active bowel sounds MUSCULOSKELETAL: Extremities without clubbing, cyanosis, or edema. NEURO: Alert & Oriented x4 to person, place, time, situation. Moves all ext x4 A/P Problem List: (1) COPD (chronic obstructive pulmonary disease) ICD Code: J44.9 - Chronic obstructive pulmonary disease, unspecified Assessment & Plan: Cont bronchodilators Steroids IV (2) CHF (congestive heart failure) ICD Code: I50.9 - Heart failure, unspecified Assessment & Plan: May be some pleural effusion cotninue with diuresis and follow PA/LAT films in am acute exacerbation of diasolyi/systolic HF (3) Hypoxia ICD Code: R09.02 - Hypoxemia Status: Acute Assessment & Plan: multifactorial due to chf/copd cont treatment for both (4) Anemia ICD Code: D64.9 - Anemia, unspecified Assessment & Plan: S/P iv Iron, continue Rx for iron deficiency anemia may need outpatient endoscopy (5) Hypokalemia ICD Code: E87.6 - Hypokalemia Status: Acute Assessment & Plan: replace, check mag Discharge Planning walk test Problem Qualifiers (1) CHF (congestive heart failure): Qualified Codes: I50.20 - Unspecified systolic (congestive) heart failure Silke Norwood MD Jun 21, 2017 12:54
[2017-06-21] MEDS ORDERED: ACETAMINOPHEN 325 MG TAB PO PRN (13:00)
[2017-06-21] MEDS ORDERED: RESP: ALBUTEROL 2.5 MG/IPRATROPIUM 0.5 MG NEB (PRN) NEB (13:00)
[2017-06-21] MEDS ORDERED: BUMETANIDE INJ 1 MG/4 ML VIAL IV PUSH ONE (13:00)
[2017-06-21 13:09] LABS: MAGNESIUM 2.2 MG/DL (1.5-2.5)
[2017-06-21 13:10] LABS: PROTHROMBIN TIME - PATIENT 35.3 SEC (9.8-11.6)
[2017-06-21 16:25] LABS: TRANSFERRIN IRON PROFILE 288 MG/DL (200-360)
[2017-06-21] MEDS: FERROUS SULFATE 325 MG (65 MG ELEMENTAL IRON) TAB PO SCH (18:00)
[2017-06-21] MEDS ORDERED: PRAVASTATIN SOD 20 MG TAB PO SCH (21:00)
[2017-06-21] MEDS: SODIUM CHLORIDE 0.9% FLUSH 10 ML FLUSH IV FLUSH SCH (21:09)
[2017-06-21] MEDS: FUROSEMIDE 40 MG TAB PO SCH (21:09)
[2017-06-22] VITALS: BP 121/85; PULSE 70; RESP 18; TEMP 97.8; O2SAT 94
[2017-06-22 04:00] VITALS: BP 127/69; PULSE 71; RESP 18; TEMP 97; O2SAT 97
[2017-06-22] MEDS ORDERED: LEVOTHYROXINE SODIUM 50 MCG TAB PO SCH (06:00)
[2017-06-22 06:42] LABS: AUTOMATED NEUTROPHIL # 7.7 TH/MM3 (1.8-7.7); EOSINOPHIL % 0.1 % (0.0-4.0); LYMPH % 3.8 % (9.0-44.0); LYMPHOCYTE # 0.3 TH/MM3 (1.0-4.8); MEAN CELL VOLUME 67.5 FL (80.0-100.0); MEAN CORPUSCULAR HEMOGLOBIN 20.2 PG (27.0-34.0); MONO % 5.3 % (0.0-8.0); NEUT % 90.8 % (16.0-70.0); PLATELET COUNT 293 TH/MM3 (150-450); RED CELL DISTRIBUTION WIDTH 19.8 % (11.6-17.2); WHITE BLOOD COUNT 8.5 TH/MM3 (4.0-11.0)
[2017-06-22 06:55] LABS: CHLORIDE 102 MEQ/L (98-107); POTASSIUM 3.6 MEQ/L (3.5-5.1); SODIUM (NA) 140 MEQ/L (136-145)
--- NOTE | 2017-06-22 06:59 | RADRPT ---
EXAM DATE/TIME: 06/22/2017 06:32 [facility] COMPARISON: CHEST SINGLE AP, June 21, 2017, 10:01. INDICATIONS : Shortness of breath. MEDICAL HISTORY : Cardiovascular disease. Chronic obstructive pulmonary disease. SURGICAL HISTORY : Cardiac ablation. ENCOUNTER: Subsequent ACUITY: 3 days PAIN SCORE: 0/10 LOCATION: Bilateral chest FINDINGS: PA and lateral views of the chest demonstrate a normal-sized cardiac silhouette with calcification of the aorta. There are small bibasilar pleural-parenchymal opacities. No pneumothorax is visualized. B ones demonstrate no acute finding. CONCLUSION: Small bilateral pleural effusions with associated volume loss and/or airspace consolidation. There castillo s been no significant change since yesterday's examination. Alex Blood MD on June 22, 2017 at 6:57 Board Certified Radiologist. This report was verified electronically.
[2017-06-22 07:01] LABS: HEMO FLAGS AUTO DIFF; MEAN CORPUSCULAR HGB CONC 29.9 % (32.0-36.0)
[2017-06-22 07:03] LABS: ANION GAP 7 MEQ/L (5-15); BICARBONATE 30.7 MEQ/L (21.0-32.0); BLOOD UREA NITROGEN 16 MG/DL (7-18)
[2017-06-22 07:06] LABS: ALT (GPT) 36 U/L (10-53); AST (GOT) 16 U/L (15-37); GLOMERULAR FILTRATION RATE 91 ML/MIN (>89)
[2017-06-22 07:07] LABS: TOTAL BILIRUBIN ADULT 0.6 MG/DL (0.2-1.0)
[2017-06-22 07:08] LABS: ALKALINE PHOSPHATASE 70 U/L (45-117)
[2017-06-22 07:59] LABS: OVALOCYTES 1+ (NORMAL); TARGET CELLS 1+ (NORMAL)
[2017-06-22 08:00] VITALS: BP 116/66; PULSE 89; RESP 16; TEMP 97.9; O2SAT 98
[2017-06-22 08:00] LABS: ROULEAUX PRESENT (NORMAL); SCAN/DIFF AUTO DIFF CONFIRMED
[2017-06-22 08:15] VITALS: O2SAT 98
[2017-06-22] MEDS ORDERED: METOPROLOL TARTRATE 25 MG TAB PO SCH (09:00)
[2017-06-22] MEDS ORDERED: PANTOPRAZOLE SOD 40 MG DELAYED RELEASE TAB PO SCH (09:00)
[2017-06-22] MEDS ORDERED: POTASSIUM CHLORIDE 20 MEQ CONTROLLED RELEASE TAB PO SCH (09:00)
[2017-06-22] MEDS: FERROUS SULFATE 325 MG (65 MG ELEMENTAL IRON) TAB PO SCH (09:24)
[2017-06-22] MEDS: FUROSEMIDE 40 MG TAB PO SCH (09:25)
[2017-06-22] MEDS: SODIUM CHLORIDE 0.9% FLUSH 10 ML FLUSH IV FLUSH SCH (09:27)
[2017-06-22] MEDS ORDERED: INFLUENZA VIRUS VACCINE (QUADRIVALENT) 0.5 ML SYR IM ONE (10:00)
[2017-06-22] MEDS ORDERED: OXYGENDME NAS.CANULA (11:24)
--- NOTE | 2017-06-22 11:24 | HHI.DCPOC ---
Discharge Care Plan Diagnosis: (1) COPD (chronic obstructive pulmonary disease) (2) CHF (congestive heart failure) Goals to Promote Your Health * To prevent worsening of your condition and complications * To maintain your health at the optimal level Directions to Meet Your Goals Take your medications as prescribed Follow your dietary instruction Follow activity as directed Keep your appointments as scheduled Take your immunizations and boosters as scheduled If your symptoms worsen call your PCP, if no PCP go to Urgent Care Center or Emergency Room Smoking is Dangerous to Your Health. Avoid second hand smoke Call the 24-hour hour crisis hotline for domestic abuse at Silke Norwood MD Jun 22, 2017 11:24
--- NOTE | 2017-06-22 11:27 | HHI.DS ---
Discharge Summary Admission Date Jun 21, 2017 at 11:10 Discharge Date: Jun 22, 2017 Admitting Diagnosis CHF Exacerbation, Hypoxia, HypoK (1) COPD (chronic obstructive pulmonary disease) ICD Code: J44.9 - Chronic obstructive pulmonary disease, unspecified (2) CHF (congestive heart failure) ICD Code: I50.9 - Heart failure, unspecified (3) Anemia ICD Code: D64.9 - Anemia, unspecified Procedures None Brief History - From Admission Patient came to the ER with increased SOB and anxiety as she was unable to get her nebulizer hooked up. She took medications as prescribed. She was hypoxemic in the ER after she received 3 rounds nebs and Solumedrol. She improved subjectively but her sats dropped to 86%. She was readmitted. She has received some lasix and has felt better. HEr cxray reviewed by me is consistent with CHF. Her echo done 06/17 shows systolic and diastolic CHF. CBC/BMP: 06/22/17 0540 06/22/17 0540 Significant Findings Laboratory Tests Test 06/21/17 10:10 06/22/17 05:40 White Blood Count 13.3 TH/MM3 (4.0-11.0) Hemoglobin 9.5 GM/DL (11.6-15.3) 8.7 GM/DL (11.6-15.3) Hematocrit 32.6 % (35.0-46.0) 29.0 % (35.0-46.0) Mean Corpuscular Volume 67.3 FL (80.0-100.0) 67.5 FL (80.0-100.0) Mean Corpuscular Hemoglobin 19.6 PG (27.0-34.0) 20.2 PG (27.0-34.0) Mean Corpuscular Hemoglobin Concent 29.2 % (32.0-36.0) 29.9 % (32.0-36.0) Red Cell Distribution Width 19.7 % (11.6-17.2) 19.8 % (11.6-17.2) Neutrophils (%) (Auto) 76.0 % (16.0-70.0) 90.8 % (16.0-70.0) Monocytes (%) (Auto) 9.9 % (0.0-8.0) Neutrophils # (Auto) 10.2 TH/MM3 (1.8-7.7) Monocytes # (Auto) 1.3 TH/MM3 (0-0.9) Basophilic Stippling FAINT (NORMAL) Tear Drop Cells 1+ (NORMAL) Ovalocytes 2+ (NORMAL) 1+ (NORMAL) Prothrombin Time 35.3 SEC (9.8-11.6) Blood Urea Nitrogen 20 MG/DL (7-18) Potassium Level 3.0 MEQ/L (3.5-5.1) Estimat Glomerular Filtration Rate 88 ML/MIN (>89) Iron Level 23 MCG/DL (50-170) Percent Iron Saturation 5.7 % (20-50) B-Type Natriuretic Peptide 646 PG/ML (0-100) Lymphocytes (%) (Auto) 3.8 % (9.0-44.0) Lymphocytes # (Auto) 0.3 TH/MM3 (1.0-4.8) Target Cells 1+ (NORMAL) Rouleau PRESENT (NORMAL) Random Glucose 185 MG/DL (74-106) Albumin 2.8 GM/DL (3.4-5.0) Imaging Last Impressions Chest X-Ray 06/22/17 0600 Signed Impressions: Service Date/Time: Thursday, June 22, 2017 06:32 - CONCLUSION: Small bilateral pleural effusions with associated volume loss and/or airspace consolidation. There has been no significant change since yesterday's examination. Alex Blood MD PE at Discharge GENERAL: This is a well-nourished, well-developed patient, in no apparent distress. CARDIOVASCULAR: Regular rate and rhythm without murmurs, gallops, or rubs. RESPIRATORY: Clear to auscultation. Breath sounds equal bilaterally. No wheezes , rales, or rhonchi. GASTROINTESTINAL: Abdomen soft, non-tender, nondistended. Normal active bowel sounds MUSCULOSKELETAL: Extremities without clubbing, cyanosis, or edema. NEURO: Alert & Oriented x4 to person, place, time, situation. Moves all ext x4 Pt update on day of discharge Patient doing well. Walk test the patient discharge. This will be arranged with case management. Hospital Course Patient is a 76-year-old female with a new diagnosis of CHF and COPD previous admission. She was unable to get her nebulizer. And came in increased short of breath. Patient did require oxygen. Her previous hospitalization she barely pass her walk test however this time she did fail walk test. Patient was diuresed and given breathing treatments and steroids and seemed to continue to improve. Patient was discharged home Pt Condition on Discharge: Good Discharge Disposition: Disch w/ Home Health Serv Discharge Time: <= 30 minutes Discharge Instructions DIET: Follow Instructions for: Heart Healthy Diet Activities you can perform: Regular-No Restrictions Follow up Referrals: Pulmonology - 1 Week with Neal Yousif MD New Medications: Oxygen (O2) (Oxygen (O2)) Device LITER MARY.CANULA CONTINUOUS for Prevent Hypoxemia, #2 O2 Concentrator Portable Gaseous 2 L/min via Nasal Canula Continuous For 99 months npi [id number] Continued Medications: Clopidogrel (Plavix) 75 Mg Tab 75 MG PO DAILY for Blood Clot Prevention, #30 TAB 0 Refills Ferrous Sulfate (Iron) 325 Mg Cap 325 MG PO BIDPC for Nutritional Supplement, #60 TAB 0 Refills Furosemide (Furosemide) 40 Mg Tab 40 MG PO BID, #60 TAB 0 Refills Ipratropium-Albuterol Neb (Duoneb) 0.5-2.5 Mg/3 Ml Neb 1 AMPULE NEB TID NEB PRN for DYSPNEA, #90 ML Levothyroxine (Levothyroxine) 50 Mcg Tab 50 MCG PO DAILY for Thyroid, #30 TAB 0 Refills Metoprolol Tartrate (Metoprolol Tartrate) 25 Mg Tab 25 MG PO DAILY, #30 TAB 0 Refills Pantoprazole (Pantoprazole) 40 Mg Tab 40 MG PO DAILY for Reflux, #30 TAB 0 Refills Potassium Chloride ER (Potassium Chloride ER) 20 Meq Tab 20 MEQ PO DAILY for Electrolyte Replacement, #30 TAB 0 Refills Prednisone (Prednisone) 20 Mg Tab 20 MG PO DAILY for copd, #6 TAB 0 Refills Simvastatin (Simvastatin) 10 Mg Tab 10 MG PO HS for Cholesterol Management, #30 TAB 0 Refills Warfarin (Warfarin) 5 Mg Tab 5 MG PO DAILY for Blood Clot Prevention, #30 TAB 0 Refills Silke Norwood MD Jun 22, 2017 11:27
--- NOTE | 2017-06-22 15:05 | HHI.FF ---
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 My clinical findings support the need for the requested home health care services because: Patient has SOB I certify that my clinical findings support that this patient is homebound because: Hx COPD- exertion dyspnea/weakness Poor cardiac reserve Silke Norwood MD Jun 22, 2017 15:05
[2017-06-22] MEDS ORDERED: WARFARIN SOD 5 MG TAB PO SCH (16:00)
== END 2017-06-22 17:06 | disposition home health service (06) ==
LOC: PHED 09:16 → UNDOADMIN 11:10 → PHEDA 11:10 → INTOOBSV 12:18 → PHEDA 12:18 → PH3A 14:22 → PHEDA 14:22 → UNDODISIN 06-22 17:06
PROVIDERS: ADMIT Hospitalist; ATTEND Hospitalist
DX: I50.43 Acute on chronic combined systolic (congestive) and diastolic (congestive) heart failure (principal); J44.9 Chronic obstructive pulmonary disease, unspecified; E11.9 Type 2 diabetes mellitus without complications; F41.9 Anxiety disorder, unspecified; D50.9 Iron deficiency anemia, unspecified; E87.6 Hypokalemia; R09.02 Hypoxemia; E78.00 Pure hypercholesterolemia, unspecified; Z86.73 Personal history of transient ischemic attack (TIA), and cerebral infarction without residual deficits; Z87.891 Personal history of nicotine dependence
CPT/HCPCS: 71010; 71020; 80048; 80053; 83540; 83550; 83735; 83880; 85025; 85610; 94620; 94640; 94664; 96374; 96375; 99285; G0378; J1940; J2930

== ENCOUNTER → 2017-07-08 | Outpatient (CLI) | payer MEDICARE, BC ==
[~2017-07-08] MED LIST changes: +OXYGENDME NAS.CANULA
--- NOTE | 2017-07-19 13:09 | RSPPFT ---
DATE OF PROCEDURE: 07/08/17 COMMENTS: VOLUMES DYNAMIC: FVC and FEV1 moderately reduced. STATIC: TLC, RV and FRC moderately reduced. FLOWS: FEV1% mildly reduced; FEF 25-75 severely reduced. DIFFUSION: Moderately reduced. FLOW VOLUME LOOP: Combined obstructive and restrictive ventilatory pattern. IMPRESSION: Moderately severe obstructive and restrictive defect with a reduction in diffusion and no significant improvement post-bronchodilator.
== END ==
LOC: PHRSP 07:30
PROVIDERS: ATTEND Internal Medicine
DX: J44.9 Chronic obstructive pulmonary disease, unspecified (principal)
CPT/HCPCS: 94060; 94729

== ENCOUNTER 2017-11-14 08:25 | Inpatient (IN) | payer MEDICARE, BC ==
[2017-11-14] VITALS (12 sets, daily range): BP systolic 119–137; BP diastolic 57–71; PULSE 73–89; RESP 14–20; TEMP 96.9–98.6; O2SAT 86–98
[~2017-11-14] VITALS: Ht 170.2 cm; Wt 76.0 kg
--- NOTE | 2017-11-14 08:36 | PD ---
HPI Chief Complaint: Respiratory Symptoms Time Seen by Provider: 08:30 Travel History International Travel<30 days: No Contact w/Intl Traveler<30days: No Traveled to known affect area: No History of Present Illness HPI 77-year-old female with history of COPD, CHF, A. fib on warfarin, here for evaluation of shortness of breath. The patient has had a cough for about a week. She woke up this morning feeling very short of breath as well as orthopnea. Shortest breath is at rest, worse with exertion. O2 saturation was noted to be in the low 80% on room air in triage. She has felt warm, but has not checked her temperature. Cough is nonproductive. No chest pain. PFSH Past Medical History Hx Anticoagulant Therapy: Yes Arthritis: Yes (Left Elbow) Asthma: No Autoimmune Disease: No Anxiety: No Depression: No Heart Rhythm Problems: Yes (Afib) Cancer: No Cardiovascular Problems: Yes High Cholesterol: Yes Chemotherapy: No Chest Pain: Yes Congestive Heart Failure: Yes COPD: Yes Cerebrovascular Accident: Yes Diabetes: Yes (NO MEDS-BORDERLINE) Diminished Hearing: No Endocrine: No Genitourinary: No Immune Disorder: No Implanted Vascular Access Dvce: Yes Musculoskeletal: No Neurologic: Yes Psychiatric: No Reproductive: No Respiratory: Yes Immunizations Current: Yes Migraines: No Radiation Therapy: No Seizures: No Sleep Apnea: No Thyroid Disease: Yes Menopausal: Yes Past Surgical History Abdominal Surgery: Yes (Appendectomy- 1996) Body Medical Devices: FILTER L GROIN Cardiac Surgery: No Ear Surgery: No Endocrine Surgery: No Eye Surgery: Yes (Lasic Correction) Genitourinary Surgery: No Gynecologic Surgery: No Neurologic Surgery: Yes (BRAIN CLOT (CATHERIZATION)) Oral Surgery: No Thoracic Surgery: Yes (Left Upper Lobectomy-2009) Other Surgery: Yes (BREAST BENIGN TUMOR REMOVED) Social History Alcohol Use: Yes (2 drinks a day) Tobacco Use: No (QUIT 1989) Substance Use: No Allergies-Medications (Allergen,Severity, Reaction): Coded Allergies: enoxaparin (Unverified Allergy, Severe, HIVES, 11/14/17) Reported Meds & Prescriptions Reported Meds & Active Scripts Active Duoneb (Ipratropium-Albuterol Neb) 0.5-2.5 Mg/3 Ml Neb 1 Ampule NEB TID NEB PRN Reported Potassium Chloride ER (Potassium Chloride) 20 Meq Tab 20 Meq PO DAILY Pantoprazole (Pantoprazole Sodium) 40 Mg Tab 40 Mg PO DAILY Metoprolol Tartrate 25 Mg Tab 25 Mg PO DAILY Levothyroxine (Levothyroxine Sodium) 50 Mcg Tab 50 Mcg PO DAILY Warfarin 5 Mg Tab 2.5 Mg PO DAILY Furosemide 40 Mg Tab 40 Mg PO BID Plavix (Clopidogrel Bisulfate) 75 Mg Tab 75 Mg PO DAILY Simvastatin 10 Mg Tab 10 Mg PO HS Review of Systems Except as stated in HPI: all other systems reviewed are Neg Physical Exam Narrative GENERAL: Well-developed, well-nourished, moderate respiratory distress, speaking a few words at a time. SKIN: Focused skin assessment warm/dry. HEAD: Atraumatic. Normocephalic. EYES: Pupils equal and round. No scleral icterus. No injection or drainage. ENT: No nasal bleeding or discharge. Mucous membranes pink and moist. NECK: Trachea midline. No JVD. CARDIOVASCULAR: Regular rate and rhythm. RESPIRATORY: Moderate respiratory distress. Speaking a few words at a time. Coarse breath sounds at the right base. Slight wheezes bilaterally. GASTROINTESTINAL: Abdomen soft, non-tender, nondistended. MUSCULOSKELETAL: No obvious deformities. No clubbing. No cyanosis. No edema. NEUROLOGICAL: Awake and alert. No obvious cranial nerve deficits. Motor grossly within normal limits. Normal speech. PSYCHIATRIC: Appropriate mood and affect; insight and judgment normal. Data Data Last Documented VS Vital Signs Date Time Temp Pulse Resp B/P (MAP) Pulse Ox O2 Delivery O2 Flow Rate FiO2 11/14/17 09:41 97 Nasal Cannula 2.00 11/14/17 09:35 87 20 119/71 (87) 11/14/17 08:40 98.5 Orders Orders Complete Blood Count With Diff (11/14/17 08:33) Comprehensive Metabolic Panel (11/14/17 08:33) B-Type Natriuretic Peptide (11/14/17 08:33) Act Partial Throm Time (Ptt) (11/14/17 08:33) Prothrombin Time / Inr (Pt) (11/14/17 08:33) Ckmb (Isoenzyme) Profile (11/14/17 08:33) Troponin I (11/14/17 08:33) Influenzae A/B Antigen (11/14/17 08:33) Blood Culture (11/14/17 08:33) Iv Access Insert/Monitor (11/14/17 08:33) Electrocardiogram (11/14/17 08:33) Ecg Monitoring (11/14/17 08:33) Oximetry (11/14/17 08:33) Oxygen Administration (11/14/17 08:33) Chest, Single Ap (11/14/17 08:33) Sodium Chloride 0.9% Flush (Ns Flush) (11/14/17 08:45) Methylprednisolone So Succ Inj (Solumedr (11/14/17 08:45) Albuterol-Ipratropium Neb (Duoneb Neb) (11/14/17 08:45) Ceftriaxone Inj (Rocephin Inj) (11/14/17 09:30) Azithromycin Inj (Zithromax Inj) (11/14/17 09:30) Admit Order (Ed Use Only) (11/14/17 10:29) Admit To Inpatient (11/14/17 ) Vital Signs (Adult) Q4H (11/14/17 10:28) Activity Oob With Assistance (11/14/17 10:28) Diet Regular Basic (11/14/17 Lunch) Sodium Chloride 0.9% Flush (Ns Flush) (11/14/17 10:30) Sodium Chloride 0.9% Flush (Ns Flush) (11/14/17 21:00) Acetaminophen (Tylenol) (11/14/17 10:30) Basic Metabolic Panel (Bmp) (11/15/17 06:00) Complete Blood Count With Diff (11/15/17 06:00) Resp Oxygen Rebel C Titrat 1-4 L (11/14/17 ) Naloxone Inj (Narcan Inj) (11/14/17 10:30) Sennosides (Senokot) (11/14/17 10:30) Clopidogrel (Plavix) (11/15/17 09:00) Furosemide (Lasix) (11/14/17 21:00) Levothyroxine (Synthroid) (11/15/17 09:00) Metoprolol Tartrate (Lopressor) (11/15/17 09:00) Pantoprazole (Protonix) (11/15/17 09:00) Potassium Chloride (Kcl) (11/15/17 09:00) (Nf) Simvastatin (11/14/17 21:00) Labs Laboratory Tests Test 11/14/17 09:07 White Blood Count 10.1 TH/MM3 Red Blood Count 4.62 MIL/MM3 Hemoglobin 10.9 GM/DL Hematocrit 34.1 % Mean Corpuscular Volume 73.9 FL Mean Corpuscular Hemoglobin 23.6 PG Mean Corpuscular Hemoglobin Concent 32.0 % Red Cell Distribution Width 20.6 % Platelet Count 213 TH/MM3 Mean Platelet Volume 8.6 FL CBC Comment AUTO DIFF Differential Total Cells Counted 100 Neutrophils % (Manual) 78 % Band Neutrophils % 4 % Lymphocytes % 12 % Monocytes % 6 % Neutrophils # (Manual) 8.3 TH/MM3 Differential Comment FINAL DIFF MANUAL Platelet Estimate NORMAL Platelet Morphology Comment NORMAL Red Cell Morphology Comment NORMAL Prothrombin Time 28.9 SEC Prothromb Time International Ratio 2.9 RATIO Activated Partial Thromboplast Time 27.8 SEC Blood Urea Nitrogen 11 MG/DL Creatinine 0.66 MG/DL Random Glucose 153 MG/DL Total Protein 7.0 GM/DL Albumin 3.0 GM/DL Calcium Level 8.2 MG/DL Alkaline Phosphatase 111 U/L Aspartate Amino Transf (AST/SGOT) 28 U/L Alanine Aminotransferase (ALT/SGPT) 20 U/L Total Bilirubin 0.6 MG/DL Sodium Level 142 MEQ/L Potassium Level 4.3 MEQ/L Chloride Level 105 MEQ/L Carbon Dioxide Level 27.5 MEQ/L Anion Gap 10 MEQ/L Estimat Glomerular Filtration Rate 87 ML/MIN Total Creatine Kinase 56 U/L Troponin I LESS THAN 0.02 NG/ML B-Type Natriuretic Peptide 292 PG/ML MDM Medical Decision Making Medical Screen Exam Complete: Yes Emergency Medical Condition: Yes Medical Record Reviewed: Yes Interpretation(s) EKG: Sinus, rate 76, normal axis, normal intervals, slight ST depressions in inferior and lateral leads, similar to prior. Differential Diagnosis Pneumonia, bronchitis, influenza, pulmonary edema, COPD exacerbation, CHF, ACS, PE Narrative Course Patient was brought straight back from triage with a sat in the low 80s on room air with respiratory distress. CBC: WBC 10.1, hemoglobin 10.9, hematocrit 34.1, platelets 213. CMP is remarkable for random glucose 153, otherwise unremarkable. Cardiac enzymes are negative. BNP is 292. INR is 2.9. Influenza is negative. Chest x-ray: CONCLUSION: Persistent left and improving right pleural effusions. Interval development of airspace disease in the right upper lung with diffuse acinar non-consolidative densities. Patient was given 3 DuoNeb treatments and IV Solu-Medrol and her respiratory status has significantly improved. She does have pneumonia in the right upper lung seen on chest x-ray. She was started on IV Rocephin and IV azithromycin. Although the patient is improved, her initial presentation of hypoxia with moderate respiratory distress, COPD exacerbation, I believe she should be admitted for overnight observation. She is amenable to this plan. Case discussed with hospitalist Dr. Norwood who will admit the patient to her service. Diagnosis Primary Impression: PNA (pneumonia) Qualified Codes: J18.1 - Lobar pneumonia, unspecified organism Additional Impressions: COPD exacerbation Hypoxia Admitting Information Admitting Physician Requests: Joby Mojica MD Nov 14, 2017 08:36
[2017-11-14] MEDS ORDERED: SODIUM CHLORIDE 0.9% FLUSH 10 ML FLUSH IVF PRN (08:45)
[2017-11-14] MEDS ORDERED: methylPREDNISolone SOD SUCC 125 MG/2 ML VIAL IV PUSH ONE (08:45)
[2017-11-14] MEDS: RESP: ALBUTEROL 2.5 MG/IPRATROPIUM 0.5 MG NEB (SCH) INH (08:46)
[2017-11-14 09:18] LABS: HEMATOCRIT 34.1 % (35.0-46.0); HEMOGLOBIN 10.9 GM/DL (11.6-15.3); MEAN CELL VOLUME 73.9 FL (80.0-100.0); MEAN CORPUSCULAR HEMOGLOBIN 23.6 PG (27.0-34.0); MEAN PLATELET VOLUME 8.6 FL (7.0-11.0); PLATELET COUNT 213 TH/MM3 (150-450); RED BLOOD COUNT 4.62 MIL/MM3 (4.00-5.30); RED CELL DISTRIBUTION WIDTH 20.6 % (11.6-17.2); WHITE BLOOD COUNT 10.1 TH/MM3 (4.0-11.0)
--- NOTE | 2017-11-14 09:21 | RADRPT ---
EXAM DATE/TIME: 11/14/2017 08:46 [facility] COMPARISON: CHEST PA & LAT, June 22, 2017, 6:32. CHEST SINGLE AP, June 21, 2017, 10:01. INDICATIONS : Short of breath MEDICAL HISTORY : Chronic obstructive pulmonary disease. SURGICAL HISTORY : Cardiac ablation ENCOUNTER: Initial ACUITY: 1 day PAIN SCORE: 0/10 LOCATION: Bilateral chest FINDINGS: Persistent left pleural effusion with hazy opacity in meniscal interface. The right costophrenic ang le is better delineated than on prior suggesting decreasing right pleural effusion. Interval develop ment of diffuse acinar densities in the lateral one half of the right upper lung without focal consol idation. The heart is normal in size. Central bronchopulmonary markings are mildly indistinct witho ut peribronchial thickening. CONCLUSION: Persistent left and improving right pleural effusions. Interval development of airspace disease in t he right upper lung with diffuse acinar non-consolidative densities. Eduardo Gallagher MD on November 14, 2017 at 9:05 Board Certified Radiologist. This report was verified electronically.
[2017-11-14] MEDS ORDERED: cefTRIAXone INJ 1,000 MG in SODIUM CHLORIDE 0.9% INJ 100 ML IV ONE (09:30)
[2017-11-14] MEDS ORDERED: AZITHROMYCIN INJ 500 MG in SODIUM CHLOR 0.9% 250 ML INJ 250 ML IV ONE (09:30)
[2017-11-14 09:32] LABS: INTERNATIONAL NORMALIZED RATIO 2.9 RATIO; PROTHROMBIN TIME - PATIENT 28.9 SEC (9.8-11.6)
[2017-11-14 09:46] LABS: CALCIUM 8.2 MG/DL (8.5-10.1)
[2017-11-14 09:47] LABS: BICARBONATE 27.5 MEQ/L (21.0-32.0); GLUCOSE,RANDOM 153 MG/DL (74-106)
[2017-11-14 09:50] LABS: CREATININE 0.66 MG/DL (0.50-1.00); GLOMERULAR FILTRATION RATE 87 ML/MIN (>89)
[2017-11-14 09:52] LABS: TOTAL BILIRUBIN ADULT 0.6 MG/DL (0.2-1.0)
[2017-11-14 09:53] LABS: ALKALINE PHOSPHATASE 111 U/L (45-117)
[2017-11-14 09:54] LABS: CHLORIDE 105 MEQ/L (98-107); SODIUM (NA) 142 MEQ/L (136-145)
[2017-11-14 09:55] LABS: TROPONIN I LESS THAN 0.02 NG/ML (0.02-0.05)
[2017-11-14 10:00] LABS: ALT (GPT) 20 U/L (10-53)
[2017-11-14 10:03] LABS: AST (GOT) 28 U/L (15-37); BLOOD UREA NITROGEN 11 MG/DL (7-18)
[2017-11-14 10:06] LABS: BANDS 4 % (0-6); LYMPHOCYTES 12 % (9-44); MONOCYTES 6 % (0-8); NEUTROPHIL # MANUAL DIFF 8.3 TH/MM3 (1.8-7.7); POLYS (SEG NEUTROPHILS) 78 % (16-70)
[2017-11-14] MEDS ORDERED: SODIUM CHLORIDE 0.9% FLUSH 10 ML FLUSH IV FLUSH PRN (10:30)
[2017-11-14] MEDS ORDERED: SENNOSIDES 8.6 MG TAB PO PRN (10:30)
[2017-11-14] MEDS ORDERED: NALOXONE HCL 0.4 MG/ML AMP IV PUSH PRN (10:30)
--- NOTE | 2017-11-14 10:59 | HHI.HP ---
[facility] Viviane Garzon MD Admission Diagnosis pneumonia, COPD exacerbation, hypoxia Diagnoses: Chief Complaint: Shortness of breath Travel History International Travel<30 Days: No Contact w/Intl Traveler <30 Da: No Traveled to Known Affected Are: No History of Present Illness This patient is a 77-year-old female with a history of COPD recently prescribed oxygen, steroids and nebulizer. Apparently she decided to turn her oxygen back and to the [employer] because "she felt better ". She also did not put her nebulizers and a secure place and couldn't find them. She did come to the emergency room with increased shortness of breath and work of breathing for the last 24 hours. She was hypoxemic on arrival and 80% in triage. She is not had any fevers or chills. She is been working hard and had some musculoskeletal discomfort which is improved by rubbing it. She notes no lyndsay chest pain, no syncopal episodes. She does have a history of diastolic and systolic heart failure with a known history of coronary disease. She takes warfarin for A. fib. Patient's come to the hospital for evaluation of acute respiratory failure secondary to COPD exacerbation Review of Systems Constitutional: DENIES: Diaphoretic episodes, Fatigue, Fever, Weight gain, Weight loss, Chills, Dizziness, Change in appetite, Night Sweats Endocrine: DENIES: Abnorml menstrual pattern, Heat/cold intolerance, Polydipsia , Polyuria, Polyphagia Eyes: DENIES: Blurred vision, Diplopia, Eye inflammation, Eye pain, Vision loss , Photosensitivity, Double Vision Ears, nose, mouth, throat: DENIES: Tinnitus, Hearing loss, Vertigo, Nasal discharge, Oral lesions, Throat pain, Hoarseness, Ear Pain, Running Nose, Epistaxis, Sinus Pain, Toothache, Odynophagia Respiratory: COMPLAINS OF: Wheezing, Shortness of breath, DENIES: Apneas, Cough , Snoring, Hemoptysis, Sputum production Cardiovascular: COMPLAINS OF: Dyspnea on Exertion, DENIES: Chest pain, Palpitations, Syncope, PND, Lower Extremity Edema, Orthopnea, Claudication Gastrointestinal: DENIES: Abdominal pain, Black stools, Bloody stools, Constipation, Diarrhea, Nausea, Vomiting, Difficulty Swallowing, Anorexia Genitourinary: DENIES: Abnormal vaginal bleeding, Dysmenorrhea, Dyspareunia, Sexual dysfunction, Urinary frequency, Urinary incontinence, Urgency, Hematuria , Dysuria, Nocturia, Vaginal discharge Musculoskeletal: DENIES: Joint pain, Muscle aches, Stiffness, Joint Swelling, Back pain, Neck pain Integumentary: DENIES: Abnormal pigmentation, Pruritus, Rash, Nail changes, Breast masses, Breast skin changes, Nipple discharge Hematologic/lymphatic: DENIES: Bruising, Lymphadenopathy Immunologic/allergic: DENIES: Eczema, Urticaria Neurologic: DENIES: Abnormal gait, Headache, Localized weakness, Paresthesias, Seizures, Speech Problems, Tremor, Poor Balance Psychiatric: DENIES: Anxiety, Confusion, Mood changes, Depression, Hallucinations, Agitation, Suicidal Ideation, Homicidal Ideation, Delusions Except as stated in HPI: all other systems reviewed are Neg Past Family Social History Past Medical History COPD Atrial fibrillation Hypertension Coronary artery disease Right and left sided heart failure Past Surgical History Left groin filter, Lasix, brain clot treatment Left upper lobectomy for lung cancer Reported Medications Reviewed in the EMR, not on steroids took her oxygen back Allergies: Coded Allergies: enoxaparin (Unverified Allergy, Severe, HIVES, 11/14/17) Active Ordered Medications Reviewed in the EMR Family History Family history of hypertension Social History , no tobacco or alcohol dependency Physical Exam Vital Signs Vital Signs Date Time Temp Pulse Resp B/P (MAP) Pulse Ox O2 Delivery O2 Flow Rate FiO2 11/14/17 09:41 97 Nasal Cannula 2.00 11/14/17 09:35 87 20 119/71 (87) 96 Nasal Cannula 2.00 11/14/17 08:45 95 Nasal Cannula 2.00 11/14/17 08:43 95 Nasal Cannula 2.00 11/14/17 08:43 95 Nasal Cannula 2.00 11/14/17 08:40 98.5 96 11/14/17 08:38 86 Room Air Physical Exam GENERAL: This is a well-nourished, well-developed patient, with some pursed lip breathing SKIN: No rashes, ecchymoses or lesions. Cool and dry. HEAD: Atraumatic. Normocephalic. No temporal or scalp tenderness. EYES: Pupils equal round and reactive. Extraocular motions intact. No scleral icterus. No injection or drainage. ENT: Nose without bleeding, purulent drainage or septal hematoma. Throat without erythema, tonsillar hypertrophy or exudate. Uvula midline. Airway patent. NECK: Trachea midline. No JVD or lymphadenopathy. Supple, nontender, no meningeal signs. CARDIOVASCULAR: Regular rate and rhythm without murmurs, gallops, or rubs. RESPIRATORY: Decreased air flow bilaterally, no wheezes GASTROINTESTINAL: Abdomen soft, non-tender, nondistended. No hepato-splenomegaly , or palpable masses. No guarding. MUSCULOSKELETAL: Extremities without clubbing, cyanosis, or edema. No joint tenderness, effusion, or edema noted. No calf tenderness. Negative Homans sign bilaterally. NEUROLOGICAL: Awake and alert. Cranial nerves II through XII intact. Motor and sensory grossly within normal limits. Five out of 5 muscle strength in all muscle groups. Normal speech. Laboratory Laboratory Tests Test 11/14/17 09:07 White Blood Count 10.1 Red Blood Count 4.62 Hemoglobin 10.9 Hematocrit 34.1 Mean Corpuscular Volume 73.9 Mean Corpuscular Hemoglobin 23.6 Mean Corpuscular Hemoglobin Concent 32.0 Red Cell Distribution Width 20.6 Platelet Count 213 Mean Platelet Volume 8.6 CBC Comment AUTO DIFF Differential Total Cells Counted 100 Neutrophils % (Manual) 78 Band Neutrophils % 4 Lymphocytes % 12 Monocytes % 6 Neutrophils # (Manual) 8.3 Differential Comment FINAL DIFF MANUAL Platelet Estimate NORMAL Platelet Morphology Comment NORMAL Red Cell Morphology Comment NORMAL Prothrombin Time 28.9 Prothromb Time International Ratio 2.9 Activated Partial Thromboplast Time 27.8 Blood Urea Nitrogen 11 Creatinine 0.66 Random Glucose 153 Total Protein 7.0 Albumin 3.0 Calcium Level 8.2 Alkaline Phosphatase 111 Aspartate Amino Transf (AST/SGOT) 28 Alanine Aminotransferase (ALT/SGPT) 20 Total Bilirubin 0.6 Sodium Level 142 Potassium Level 4.3 Chloride Level 105 Carbon Dioxide Level 27.5 Anion Gap 10 Estimat Glomerular Filtration Rate 87 Total Creatine Kinase 56 Troponin I LESS THAN 0.02 B-Type Natriuretic Peptide 292 Date/Time Source Procedure Growth Status 11/14/17 09:07 Blood Peripheral Aerobic Blood Culture Pending Received 11/14/17 09:07 Blood Peripheral Anaerobic Blood Culture Pending Received 11/14/17 09:00 Nasal Washing Influenza Types A,B Antigen (QUYEN) - Final NEGATIVE FOR FLU A AND B ANTIGEN.... Complete Result Diagram: 11/14/1790611/14/17 09 Imaging Last Impressions Chest X-Ray 11/14/17 0833 Signed Impressions: Service Date/Time: Tuesday, November 14, 2017 08:46 - CONCLUSION: Persistent left and improving right pleural effusions. Interval development of airspace disease in the right upper lung with diffuse acinar non-consolidative densities. MD Charo Salazar VTE Risk Assessment Caprini VTE Risk Assessment: Mod/High Risk (score >= 2) VTE Pharm Contraindication: Coagulopathy,INR elevated Caprini Risk Assessment Model Point Value = 1 Point Value = 2 Point Value = 3 Point Value = 5 Age 41-60 Minor surgery BMI > 25 kg/m2 Swollen legs Varicose veins or History of unexplained or recurrent spontaneous Oral contraceptives or hormone replacement Sepsis (< 1 month) Serious lung disease, including pneumonia (< 1 month) Abnormal pulmonary function Acute myocardial infarction Congestive heart failure (< 1 month) History of inflammatory bowel disease Medical patient at bed rest Age 61-74 Arthroscopic surgery Major open surgery (> 45 min) Laparoscopic surgery (> 45 min) Malignancy Confined to bed (> 72 hours) Immobilizing plaster cast Central venous access Age >= 75 History of VTE Family history of VTE Factor V Leiden Prothrombin [id number] Lupus anticoagulant Anticardiolipin antibodies Elevated serum homocysteine Heparin-induced thrombocytopenia Other congenital or acquired thrombophilia Stroke (< 1 month) Elective arthroplasty Hip, pelvis, or leg fracture Acute spinal cord injury (< 1 month) Prophylaxis Regimen Total Risk Factor Score Risk Level Prophylaxis Regimen 0-1 Low Early ambulation 2 Moderate Order ONE of the following: *Sequential Compression Device (SCD) *Heparin 5000 units SQ BID 3-4 Higher Order ONE of the following medications: *Heparin 5000 units SQ TID *Enoxaparin/Lovenox 40 mg SQ daily (WT < 150 kg, CrCl > 30 mL/min) *Enoxaparin/Lovenox 30 mg SQ daily (WT < 150 kg, CrCl > 10-29 mL/min) *Enoxaparin/Lovenox 30 mg SQ BID (WT < 150 kg, CrCl > 30 mL/min) AND/OR *Sequential Compression Device (SCD) 5 or more Highest Order ONE of the following medications: *Heparin 5000 units SQ TID (Preferred with Epidurals) *Enoxaparin/Lovenox 40 mg SQ daily (WT < 150 kg, CrCl > 30 mL/min) *Enoxaparin/Lovenox 30 mg SQ daily (WT < 150 kg, CrCl > 10-29 mL/min) *Enoxaparin/Lovenox 30 mg SQ BID (WT < 150 kg, CrCl > 30 mL/min) AND *Sequential Compression Device (SCD) Assessment and Plan Problem List: (1) COPD exacerbation ICD Code: J44.1 - Chronic obstructive pulmonary disease with (acute) exacerbation Status: Acute Plan: Patient appears to be nonadherent with medical treatment as previously prescribed Continue with bronchodilators by nebulizer, IV steroids and with empiric antibiotics Patient's follow up with Dr. bryant (2) CAD (coronary artery disease) ICD Code: I25.10 - Atherosclerotic heart disease of torres martinez coronary artery without angina pectoris Plan: Currently stable on metoprolol, takes warfarin and Plavix (Dr. Castillo) (3) Atrial fibrillation ICD Code: I48.91 - Unspecified atrial fibrillation Plan: Rate currently controlled on metoprolol, patient on warfarin with therapeutic INR Continue telemetry Physician Certification 2 Midnight Certification Type: Admission for Inpatient Services Order for Inpatient Services The services are ordered in accordance with Medicare regulations or non- Medicare payer requirements, as applicable. In the case of services not specified as inpatient-only, they are appropriately provided as inpatient services in accordance with the 2-midnight benchmark. Estimated LOS (days): 3 3 days is the estimated time the patient will need to remain in the hospital, assuming treatment plan goals are met and no additional complications. Post-Hospital Plan: Home Silke Norwood MD Nov 14, 2017 10:59
[2017-11-14] MEDS ORDERED: RESP: ALBUTEROL 2.5 MG/IPRATROPIUM 0.5 MG NEB (PRN) NEB (11:00)
[2017-11-14] MEDS: RESP: ALBUTEROL 2.5 MG/IPRATROPIUM 0.5 MG NEB (SCH) NEB ×2 (13:57→20:18)
--- NOTE | 2017-11-14 15:50 | EKG ---
Date Performed: 11/14/2017 Time Performed: 08:42:07 PTAGE: 77 years EKG: Sinus rhythm NONSPECIFIC ST & T-WAVE ABNORMALITY BORDERLINE ECG Consider anterolateral ischemia PREVIOUS TRACING : 06/16/2017 10.49 DOCTOR: Thierry Awad Interpretating Date/Time 11/14/2017 15:48:47
[2017-11-14] MEDS: methylPREDNISolone SOD SUCC 40 MG/1 ML VIAL IV PUSH SCH (17:01)
[2017-11-14] MEDS: FUROSEMIDE 40 MG TAB PO SCH (17:01)
[2017-11-14] MEDS: SODIUM CHLORIDE 0.9% FLUSH 10 ML FLUSH IV FLUSH SCH (20:09)
[2017-11-14] MEDS: ACETAMINOPHEN 325 MG TAB PO PRN (20:13)
[2017-11-14] MEDS ORDERED: PRAVASTATIN SOD 20 MG TAB PO SCH (21:00)
[2017-11-15] VITALS: BP 132/70; PULSE 75; RESP 19; TEMP 96.5; O2SAT 98
[2017-11-15] MEDS: methylPREDNISolone SOD SUCC 40 MG/1 ML VIAL IV PUSH SCH ×2 (01:04→07:42)
[2017-11-15] MEDS: ACETAMINOPHEN 325 MG TAB PO PRN ×2 (01:05→06:46)
[2017-11-15 04:00] VITALS: BP 129/69; PULSE 69; RESP 18; TEMP 97.1; O2SAT 99
[2017-11-15] MEDS ORDERED: LEVOTHYROXINE SODIUM 50 MCG TAB PO SCH (06:00)
[2017-11-15 07:22] LABS: AUTOMATED NEUTROPHIL # 8.4 TH/MM3 (1.8-7.7); BASOPHIL % 0.1 % (0.0-2.0); HEMOGLOBIN 9.8 GM/DL (11.6-15.3); LYMPHOCYTE # 0.5 TH/MM3 (1.0-4.8); MEAN CELL VOLUME 75.3 FL (80.0-100.0); MEAN CORPUSCULAR HGB CONC 30.5 % (32.0-36.0); MEAN PLATELET VOLUME 9.4 FL (7.0-11.0); MONO % 1.3 % (0.0-8.0); MONOCYTE # 0.1 TH/MM3 (0-0.9); NEUT % 93.6 % (16.0-70.0); PLATELET COUNT 223 TH/MM3 (150-450); RED BLOOD COUNT 4.25 MIL/MM3 (4.00-5.30); RED CELL DISTRIBUTION WIDTH 20.8 % (11.6-17.2); WHITE BLOOD COUNT 9.1 TH/MM3 (4.0-11.0)
[2017-11-15 07:35] LABS: CALCIUM 8.3 MG/DL (8.5-10.1)
[2017-11-15 07:39] LABS: CREATININE 0.68 MG/DL (0.50-1.00)
[2017-11-15] MEDS: FUROSEMIDE 40 MG TAB PO SCH (07:43)
[2017-11-15] MEDS: SODIUM CHLORIDE 0.9% FLUSH 10 ML FLUSH IV FLUSH SCH (07:48)
[2017-11-15 07:59] LABS: OVALOCYTES 1+ (NORMAL)
[2017-11-15 08:00] VITALS: BP 123/56; PULSE 72; RESP 16; TEMP 96.2; O2SAT 96
[2017-11-15] MEDS: RESP: ALBUTEROL 2.5 MG/IPRATROPIUM 0.5 MG NEB (SCH) NEB (08:01)
[2017-11-15 08:10] VITALS: O2SAT 98
[2017-11-15 08:18] LABS: INTERNATIONAL NORMALIZED RATIO 1.9 RATIO; PROTHROMBIN TIME - PATIENT 19.4 SEC (9.8-11.6)
[2017-11-15] MEDS ORDERED: METOPROLOL TARTRATE 25 MG TAB PO SCH (09:00)
[2017-11-15] MEDS ORDERED: CLOPIDOGREL 75 MG TAB PO SCH (09:00)
[2017-11-15] MEDS ORDERED: PANTOPRAZOLE SOD 40 MG DELAYED RELEASE TAB PO SCH (09:00)
[2017-11-15] MEDS ORDERED: POTASSIUM CHLORIDE 20 MEQ CONTROLLED RELEASE TAB PO SCH (09:00)
[2017-11-15] MEDS ORDERED: INFLUENZA VIRUS VACCINE (QUADRIVALENT) 0.5 ML SYR IM ONE (10:00)
[2017-11-15] MEDS ORDERED: AZITHROMYCIN INJ 250 MG in SODIUM CHLOR 0.9% 250 ML INJ 250 ML IV SCH (10:00)
[2017-11-15] MEDS ORDERED: PRED10PA PO (11:40)
[2017-11-15] MEDS ORDERED: Albuterol-Ipratropium Neb NEB (11:40)
[2017-11-15] MEDS ORDERED: AZIT500T2 PO (11:40)
--- NOTE | 2017-11-15 11:43 | HHI.DS ---
Discharge Summary Admission Date Nov 14, 2017 at 10:30 Discharge Date: Nov 15, 2017 Admitting Diagnosis pneumonia, COPD exacerbation, hypoxia (1) COPD exacerbation ICD Code: J44.1 - Chronic obstructive pulmonary disease with (acute) exacerbation Status: Acute (2) CAD (coronary artery disease) ICD Code: I25.10 - Atherosclerotic heart disease of pauma coronary artery without angina pectoris (3) Atrial fibrillation ICD Code: I48.91 - Unspecified atrial fibrillation Procedures none Brief History - From Admission This patient is a 77-year-old female with a history of COPD recently prescribed oxygen, steroids and nebulizer. Apparently she decided to turn her oxygen back and to the [employer] because "she felt better ". She also did not put her nebulizers and a secure place and couldn't find them. She did come to the emergency room with increased shortness of breath and work of breathing for the last 24 hours. She was hypoxemic on arrival and 80% in triage. She is not had any fevers or chills. She is been working hard and had some musculoskeletal discomfort which is improved by rubbing it. She notes no lyndsay chest pain, no syncopal episodes. She does have a history of diastolic and systolic heart failure with a known history of coronary disease. She takes warfarin for A. fib. Patient's come to the hospital for evaluation of acute respiratory failure secondary to COPD exacerbation CBC/BMP: 11/15/17 0540 11/15/17 0540 Significant Findings Laboratory Tests Test 11/14/17 09:07 11/15/17 05:40 Hemoglobin 10.9 GM/DL (11.6-15.3) 9.8 GM/DL (11.6-15.3) Hematocrit 34.1 % (35.0-46.0) 32.0 % (35.0-46.0) Mean Corpuscular Volume 73.9 FL (80.0-100.0) 75.3 FL (80.0-100.0) Mean Corpuscular Hemoglobin 23.6 PG (27.0-34.0) 23.0 PG (27.0-34.0) Red Cell Distribution Width 20.6 % (11.6-17.2) 20.8 % (11.6-17.2) Neutrophils % (Manual) 78 % (16-70) Neutrophils # (Manual) 8.3 TH/MM3 (1.8-7.7) Prothrombin Time 28.9 SEC (9.8-11.6) 19.4 SEC (9.8-11.6) Random Glucose 153 MG/DL (74-106) 245 MG/DL (74-106) Albumin 3.0 GM/DL (3.4-5.0) Calcium Level 8.2 MG/DL (8.5-10.1) 8.3 MG/DL (8.5-10.1) Estimat Glomerular Filtration Rate 87 ML/MIN (>89) 84 ML/MIN (>89) Troponin I LESS THAN 0.02 NG/ML B-Type Natriuretic Peptide 292 PG/ML (0-100) Mean Corpuscular Hemoglobin Concent 30.5 % (32.0-36.0) Neutrophils (%) (Auto) 93.6 % (16.0-70.0) Lymphocytes (%) (Auto) 5.0 % (9.0-44.0) Neutrophils # (Auto) 8.4 TH/MM3 (1.8-7.7) Lymphocytes # (Auto) 0.5 TH/MM3 (1.0-4.8) Ovalocytes 1+ (NORMAL) Imaging Last Impressions Chest X-Ray 11/14/17 0833 Signed Impressions: Service Date/Time: Tuesday, November 14, 2017 08:46 - CONCLUSION: Persistent left and improving right pleural effusions. Interval development of airspace disease in the right upper lung with diffuse acinar non-consolidative densities. Eduardo Gallagher MD PE at Discharge GENERAL: This is a well-nourished, well-developed patient, in no apparent distress. CARDIOVASCULAR: Regular rate and rhythm without murmurs, gallops, or rubs. RESPIRATORY: Clear to auscultation. Breath sounds equal bilaterally. No wheezes , rales, or rhonchi. GASTROINTESTINAL: Abdomen soft, non-tender, nondistended. Normal active bowel sounds MUSCULOSKELETAL: Extremities without clubbing, cyanosis, or edema. NEURO: Alert & Oriented x4 to person, place, time, situation. Moves all ext x4 Pt update on day of discharge She doing much better overnight. Doing well with oxygen and with steroids. Platelet care and treatment plan as well as discharge plan discussed with patient and spouse. They are in agreement Hospital Course this patient is a [id number] history of COPD and systolic and diastolic heart failure. She did come in with COPD exacerbation likely associated with kidney acquired pneumonia. She was given antibiotics. She did well. She was admonished to continue medical treatment of COPD with nebulizers and oxygen. She expressed understanding. Pt Condition on Discharge: Good Discharge Disposition: Discharge Home Discharge Time: > 30 minutes Discharge Instructions DIET: Follow Instructions for: As Tolerated, No Restrictions Activities you can perform: Regular-No Restrictions Follow up Referrals: PCP Follow-up - 1 Week New Medications: Azithromycin (Azithromycin) 500 Mg Tab 500 MG PO DAILY for Infection, #5 TAB 0 Refills Prednisone (21) 10 mg tab Dose Pack (Prednisone (21) 10 mg tab Dose Pack) 10 Mg Pack 10 MG PO DIRECTED for Inflammation, #1 DSPK 0 Refills [Albuterol-Ipratropium Neb] () 1 AMPULE NEBU 1 AMPULE NEB Q2HR NEB PRN for dyspnea, #60 1 Refill Continued Medications: Clopidogrel (Plavix) 75 Mg Tab 75 MG PO DAILY for Blood Clot Prevention, #30 TAB 0 Refills Furosemide (Furosemide) 40 Mg Tab 40 MG PO BID, #60 TAB 0 Refills Ipratropium-Albuterol Neb (Duoneb) 0.5-2.5 Mg/3 Ml Neb 1 AMPULE NEB TID NEB PRN for DYSPNEA, #90 ML Levothyroxine (Levothyroxine) 50 Mcg Tab 50 MCG PO DAILY for Thyroid, #30 TAB 0 Refills Metoprolol Tartrate (Metoprolol Tartrate) 25 Mg Tab 25 MG PO DAILY, #30 TAB 0 Refills Pantoprazole (Pantoprazole) 40 Mg Tab 40 MG PO DAILY for Reflux, #30 TAB 0 Refills Potassium Chloride ER (Potassium Chloride ER) 20 Meq Tab 20 MEQ PO DAILY for Electrolyte Replacement, #30 TAB 0 Refills Simvastatin (Simvastatin) 10 Mg Tab 10 MG PO HS for Cholesterol Management, #30 TAB 0 Refills Warfarin (Warfarin) 5 Mg Tab 2.5 MG PO DAILY for Blood Clot Prevention, #30 TAB 0 Refills iSlke Norwood MD Nov 15, 2017 11:42
[2017-11-15] MEDS ORDERED: WARFARIN SOD 2.5 MG TAB PO SCH (16:00)
== END 2017-11-15 16:15 | disposition home or self-care (01) | DRG 189 ==
LOC: PHED 08:25 → OBSVTOIN 10:30 → PHEDA 10:30 → PH3B 11:41
PROVIDERS: ADMIT Hospitalist; ATTEND Hospitalist
DX: J96.01 Acute respiratory failure with hypoxia (principal); J18.9 Pneumonia, unspecified organism; I11.0 Hypertensive heart disease with heart failure; I50.42 Chronic combined systolic (congestive) and diastolic (congestive) heart failure; I48.91 Unspecified atrial fibrillation; J44.0 Chronic obstructive pulmonary disease with (acute) lower respiratory infection; J44.1 Chronic obstructive pulmonary disease with (acute) exacerbation; I25.10 Atherosclerotic heart disease of native coronary artery without angina pectoris; E78.00 Pure hypercholesterolemia, unspecified; M19.90 Unspecified osteoarthritis, unspecified site; Z79.01 Long term (current) use of anticoagulants; Z85.118 Personal history of other malignant neoplasm of bronchus and lung; Z91.19 Patient's noncompliance with other medical treatment and regimen; Z86.73 Personal history of transient ischemic attack (TIA), and cerebral infarction without residual deficits
CPT/HCPCS: 71045; 80048; 80053; 82550; 83880; 84484; 85007; 85025; 85027; 85610; 85730; 87040; 87804; 93005; 94618; 94640; 94664; 96365; 96375; J0456; J0696; J2920; J2930; J7050

== ENCOUNTER → 2018-01-31 | Outpatient (CLI) | payer MEDICARE, BC ==
--- NOTE | 2018-01-27 08:21 | MH ---
cc: Juan Luis Red MD DATE OF ADMISSION: 01/31/2018 ADMISSION DIAGNOSIS: Cataract, right eye. HISTORY OF PRESENT ILLNESS: This 77-year-old white female is coming to [facility] for the purpose of a lens extraction of the right eye with intraocular lens implant under local anesthesia. She has noted decreasing visual acuity interfering with her daily activities and elected to have the above procedure. Her best corrected visual acuity in room light is 20/50 -1 in the right eye and 20/70 in the left eye. She does have a history of LASIK in the right eye and it was elected to do her right eye first, as she may want monovision and we will be able to determine what to set the left eye in with more certainty after the right eye is completed due to the variability of predicting outcomes following LASIK surgery with cataract surgery. PAST MEDICAL HISTORY: The patient has a history of a cerebrovascular accident, lung cancer, COPD, congestive heart failure, and possibly hypertension. She has had atrial fibrillation in the past, but had heart ablation in 02/2015. PAST SURGICAL HISTORY: Includes appendectomy, left upper lobe of the lung being removed and benign breast tumor, as well as LASIK surgery on her right eye only. DAILY MEDICATIONS: 1. Jantoven. 2. Plavix. 3. Simvastatin. 4. Pantoprazole. 5. Levothyroxine. 6. Iron. 7. Metoprolol. 8. Furosemide. ALLERGIES: SHE IS ALLERGIC TO PERCOCET AND LOVENOX. SOCIAL HISTORY: She was a 1 pack per day smoker for 20 years and drinks wine or a cocktail. FAMILY HISTORY: Positive for aunt and mother with cataracts and mother with glaucoma. REVIEW OF SYSTEMS: HEAD: Patient denies severe headaches, dizziness or recent head injury. EARS: Patient denies hearing loss, ear pain, discharge or ringing in the ears. NOSE: Patient denies nasal discharge, obstruction or frequent colds. MOUTH AND THROAT: Patient denies soreness of the mouth or tongue, bleeding gums, trouble swallowing, changes in voice or sore throat. NECK: Patient denies neck pain or swelling, limitation of neck movement or neck injury. CARDIOPULMONARY SYSTEM: Patient denies shortness of breath, orthopnea, chronic cough, sputum production, hemoptysis, chest pain, wheezing, palpitations or light-headedness. GI SYSTEM: Patient denies poor appetite, nausea, vomiting, abdominal pain, ulcers, hemorrhoids or change in bowel habits. SYSTEM: The patient has urinary frequency secondary to her diuretic. Denies dysuria, change in urine color. NERVOUS SYSTEM: Patient had a stroke in 2009, but denies convulsions, vertigo, numbness or weakness. PHYSICAL EXAM: VITAL SIGNS: Blood pressure 132/78, pulse 68, respirations 20. HEAD: Head is normocephalic, atraumatic. NOSE: Nose without rhinorrhea. THROAT: Clear. NECK: Supple. CHEST: Clear. HEART: Irregular rhythm. ABDOMEN: Without tenderness. EXTREMITIES: Without edema. NEUROLOGIC: Within normal limits. MENTAL STATUS: Within normal limits. EYE EXAM: The patient's best corrected visual acuity in room light is 20/50 -1 in the right eye and 20/70 in the left. Visual savage are full to confrontation testing. Extraocular muscle exam reveals full versions with orthophoric at distance and near. Pupils are 3 mm, equal, round, reactive to light, without afferent defect. Anterior segment examination reveals dermatochalasis of the eyelid skin. The right eye is status post LASIK surgery on the cornea. There are nuclear sclerotic posterior subcapsular and cortical cataract changes bilaterally. Intraocular pressure is 16 in the right eye and 15 in the left by applanation tonometry. Dilated fundus exam revealed sharp disc with cup-to-disc ratio of 0.4 bilaterally. There is an occasional Drusen in the right macula and the left is clear. A posterior vitreous detachment is present bilaterally. On formal visual field testing, there is some component of a left homonymous visual field defect as a residual of her cerebrovascular accident. IMPRESSION: 1. Bilateral cataracts. 2. Status post LASIK right eye. 3. Posterior vitreous detachment both eyes. 4. 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 5. Dermatochalasis. PLAN: Lens extraction of the right eye with intraocular lens implant under local anesthesia through [facility]. The patient has been cleared medically. She has been counseled as to the risks, benefits and alternatives and elected to proceed. I feel that cataract surgery will improve the quality of life and activities of daily living in this patient. Juan Luis N. Share, MD SENIOR BRANCH MANAGER/JUAN JOSE , 07:45 AM , 08:09 AM
[~2018-01-31] VITALS: Ht 170.2 cm; Wt 73.5 kg
[~2018-01-31] MED LIST changes: +ACETYLCHOLINE CHL OPHT SOLN 1:100 2 ML VIAL ONE; +AZIT500T2 PO; +Albuterol-Ipratropium Neb NEB; +CHLORHEXIDINE GLUCONATE 2 % 1 PACK (2 CLOTHS) TOPICAL PRN; +CYCLOPENTOLATE HCL 1% OPHT SOLN 2 ML BTL ONE; +DICLOFENAC SOD 0.1% OPHT SOLN 2.5 ML BTL ONE; +EPINEPHrine HCL PF/SF (1:1000) 1 MG/ML AMP I-OCULAR ONE; -FERR325C PO; +FLUT1INH INH; +GATIFLOXACIN 0.5% OPHT SOLN 2.5 ML BTL ONE; +HYALURONIDASE/LIDOCAINE/BUPIVACAINE 5 ML SYR RIGHT EYE ONE; +INSULIN HUMAN REGULAR 1,000 UNITS/10 ML VIAL SQ PRN; +LACTATED RINGER'S 1000 ML IV PRN; +METOPROLOL TARTRATE 25 MG TAB PO PRN; -OXYGENDME NAS.CANULA; +PHENYLEPHRINE HCL 2.5% OPTH SOLN 2 ML BTL ONE; +PILOCARPINE HCL 2% OPHT SOLN 15 ML BTL ONE; +POVIDONE IODINE 5% (ANTISEPSIS KIT) 4 APPLICATIONS EACH NARE PRN; +PRED10PA PO; -PRED20 PO; +PROPARACAINE HCL 0.5% OPHT SOLN 15 ML BTL ONE; +PROPARACAINE HCL 0.5% OPHT SOLN 15 ML BTL RIGHT EYE ONE; +PROPOFOL 200 MG/20 ML AMP ONE; +SODIUM CHLORID 0.9% 500 ML IV PRN; +TETRACAINE 0.5% OPTH SOLN 4 ML BTL ONE; +TOBRAMYCIN/DEXAMETHASONE OPTH OINT 3.5 GM TUBE ONE; +TROPICAMIDE 1% OPHT SOLN 15 ML BTL ONE; +VISCOAT OPHT IRRIG SOLN 0.75 ML SYRINGE ONE
[2018-01-31 06:54] VITALS: PULSE 71
[2018-01-31] MEDS: GATIFLOXACIN 0.5% OPHT SOLN 2.5 ML BTL RIGHT EYE SCH ×4 (06:57→07:06)
[2018-01-31] MEDS: DICLOFENAC SOD 0.1% OPHT SOLN 2.5 ML BTL RIGHT EYE SCH ×4 (06:57→07:06)
[2018-01-31] MEDS: PHENYLEPHRINE HCL 2.5% OPTH SOLN 2 ML BTL RIGHT EYE SCH ×4 (06:57→07:06)
[2018-01-31] MEDS: TROPICAMIDE 1% OPHT SOLN 15 ML BTL RIGHT EYE SCH ×4 (06:57→07:06)
[2018-01-31] MEDS: CYCLOPENTOLATE HCL 1% OPHT SOLN 2 ML BTL RIGHT EYE SCH ×4 (06:57→07:06)
[2018-01-31 07:28] VITALS: PULSE 67
--- NOTE | 2018-01-31 09:17 | MP ---
cc: Juan Luis Red MD DATE OF OPERATION: 01/31/2018 POSTOPERATIVE DIAGNOSIS: Cataract, right eye. OPERATION: Extracapsular cataract extraction with posterior chamber intraocular lens implant by phacoemulsification, right eye. SURGEON: Juan Luis Red M.D. ANESTHESIA: Local. COMPLICATIONS: None. INDICATIONS: See history and physical previously dictated. OPERATIVE PROCEDURE: The patient had adequate retrobulbar and eyelid blocks administered in the holding area and was brought to the operating room. The right eye was prepped and draped in the usual sterile ophthalmic manner. A lid speculum was inserted in the right eye. A 4-0 silk bridle suture was placed through the conjunctiva near the superior rectus muscle and it was tagged to the drape. A fornix-based conjunctival flap was prepared spanning approximately 5 mm in width. Hemostasis was obtained with wet-field cautery. A 3.5 mm groove was made 1 mm from the limbus and dissected up to the limbus in the form of a scleral pocket incision. A stab incision was then made at the 2 o'clock position. Viscoelastic was injected into the anterior chamber. The anterior chamber was entered with a 2.75 mm keratome through the scleral pocket incision. A 360 degree continuous curvilinear capsulorrhexis was then performed. Hydrodissection was utilized to divide the nucleus into inner and outer components and to separate the cortex from the capsule. Phacoemulsification was then utilized to remove the nucleus. The outer nuclear layer was removed with irrigation and aspiration and short bursts of ultrasound as necessary. The cortex was removed with the irrigation/aspiration handpiece. The posterior capsule was polished with the capsule polisher. Viscoelastic was injected into the capsular bag. The intraocular lens was inspected and found to be in good condition. The lens utilized was an All, model number SA60AT with a power of +20.5 diopters. The lens was inserted into the capsular bag. The viscoelastic in the anterior chamber was then removed with the irrigation-aspiration handpiece. Viscoelastic was also removed from beneath the intraocular lens. The anterior chamber was filled with Miochol-E through the stab incision and pressurized. The wound was checked for leaks at this pressure and normalized pressure and there were none. The 4-0 bridle suture was removed. The conjunctival flap was brought down over the wound and secured with cautery. Pilocarpine 2% eye drops were instilled topically. The lid speculum was removed. TobraDex ophthalmic ointment was applied. The eye was double patched and shielded. The patient tolerated the procedure well and left the Operating Room in satisfactory condition. MD ADRIEL Beltrán/REBECA , 09:04 AM , 09:15 AM
[2018-01-31 09:25] VITALS: BP 141/70; PULSE 65; RESP 16; TEMP 97.9; O2SAT 95
== END ==
LOC: PHSDC 06:01
PROVIDERS: ATTEND Ophthalmology
DX: H25.811 Combined forms of age-related cataract, right eye (principal); H35.361 Drusen (degenerative) of macula, right eye; H43.813 Vitreous degeneration, bilateral; I69.398 Other sequelae of cerebral infarction; H53.8 Other visual disturbances; H02.839 Dermatochalasis of unspecified eye, unspecified eyelid; I48.91 Unspecified atrial fibrillation; I50.9 Heart failure, unspecified; J44.9 Chronic obstructive pulmonary disease, unspecified; Z85.118 Personal history of other malignant neoplasm of bronchus and lung; Z87.891 Personal history of nicotine dependence
CPT/HCPCS: 00142; 66984; J0171; J7040; V2632

== ENCOUNTER → 2018-03-21 | Day surgery (SDC) | payer MEDICARE, BC ==
--- NOTE | 2018-03-09 12:54 | MH ---
cc: Juan Luis Red MD DATE OF ADMISSION: 03/21/2018 ADMISSION DIAGNOSIS: Cataract, left eye. HISTORY OF PRESENT ILLNESS: This 77-year-old white female is coming through [facility] for the purpose of a lens extraction of the left eye with intraocular lens implant under local anesthesia. She had a similar procedure in her right eye in January of this year and did well postoperatively and now is requesting cataract surgery for her left eye. Her best corrected visual acuity in room light is 20/70+1 in the left eye and 20/20-2 in the right. PAST MEDICAL HISTORY: The patient has a history of stroke, atrial fibrillation, lung cancer, psoriasis, cholesterol problems, chronic obstructive pulmonary disease, congestive heart failure, questionable history of hypertension. PAST SURGICAL HISTORY: Includes appendectomy, left upper lobe lung cancer surgery, benign breast tumor surgery, cardiac ablation for atrial fibrillation and LASIK surgery on her right eye only. MEDICATIONS: Her daily medications include: Jantoven, Plavix, simvastatin, pantoprazole, levothyroxine, iron, metoprolol, furosemide. ALLERGIES: SHE IS ALLERGIC TO PERCOCET AND LOVENOX. SOCIAL HISTORY: One pack per day smoker for 20 years and has a cocktail wine. FAMILY HISTORY: Positive for aunt and mother with cataract and mother with glaucoma. REVIEW OF SYSTEMS: HEAD: Patient denies severe headaches, dizziness or recent head injury. EARS: Patient denies hearing loss, ear pain, discharge or ringing in the ears. NOSE: Patient denies nasal discharge, obstruction or frequent colds. MOUTH AND THROAT: Patient denies soreness of the mouth or tongue, bleeding gums, trouble swallowing, changes in voice or sore throat. NECK: Patient denies neck pain or swelling, limitation of neck movement or neck injury. CARDIOPULMONARY SYSTEM: Patient denies shortness of breath, orthopnea, chronic cough, sputum production, hemoptysis, chest pain, wheezing, palpitations or light-headedness. GI SYSTEM: Patient denies poor appetite, nausea, vomiting, abdominal pain, ulcers, hemorrhoids or change in bowel habits. SYSTEM: The patient has urinary frequency due to her diuretic. Denies dysuria, change in urine color. NERVOUS SYSTEM: Patient had a stroke in 2009. Patient denies convulsions, vertigo, numbness or weakness. PHYSICAL EXAMINATION: VITAL SIGNS: Blood pressure is 118/68, pulse 64, respirations 20. HEENT: Head is normocephalic, atraumatic. Nose without rhinorrhea. Throat: Clear. NECK: Supple. CHEST: Clear. HEART: Atrial fibrillation with irregular rhythm. ABDOMEN: Without tenderness. EXTREMITIES: Without edema. NEUROLOGIC: Head is normocephalic, atraumatic. Nose without rhinorrhea. Throat: Clear. NECK: Supple. CHEST: Clear. HEART: Regular rhythm last exam. ABDOMEN: Without tenderness. EXTREMITIES: Without edema. NEUROLOGIC: Within normal limits. MENTAL STATUS: Within normal limits. EYE EXAM: The patient's best corrected visual acuity in room light is 20/70+1 in the left eye and 20/20-2 in the right. Visual savage are full to confrontation testing. Extraocular muscle exam reveals full versions with orthophoria at distance and near. Pupils are 3 mm, equal, round, reactive to light, without afferent defect. Anterior segment examination reveals dermatochalasis of the eyelid skin. A posterior chamber intraocular lens is in place in the right eye and the nuclear sclerotic posterior subcapsular and cortical cataract is present in the left. Intraocular pressure is 19 in the right eye and 18 in the left by applanation tonometry. Dilated fundus exam revealed sharp disc with cup-to-disc ratio of 0.4 bilaterally. There is an occasional Druse in the right macula and retinal pigment epithelial changes also present in the right eye. The left eye appears clear. Posterior vitreous detachment is present bilaterally with some reticular pigmentary changes in the right eye in background. IMPRESSION: 1. Cataract, left eye. 2. Pseudophakia, right eye. 3. Posterior vitreous detachment, both eyes. 4. Dermatochalasis, both eyes. 5. She has some left homonymous visual field defects on automated visual field testing from her cerebrovascular accident in the past. PLAN: Lens extraction of the left eye with intraocular lens implant under local anesthesia through [facility]. The patient has been cleared medically. She has been counseled as to the risks, benefits and alternatives and elected to proceed. I feel that cataract surgery will improve the quality of life and activities of daily living in this patient. MD ADRIEL Beltrán/REBECA , 09:26 AM , 09:54 AM
[~2018-03-21] VITALS: Ht 170.2 cm; Wt 72.5 kg
[~2018-03-21] MED LIST changes: -AZIT500T2 PO; -Albuterol-Ipratropium Neb NEB; -CYCLOPENTOLATE HCL 1% OPHT SOLN 2 ML BTL ONE; -DICLOFENAC SOD 0.1% OPHT SOLN 2.5 ML BTL ONE; -GATIFLOXACIN 0.5% OPHT SOLN 2.5 ML BTL ONE; +HYALURONIDASE/LIDOCAINE/BUPIVACAINE 5 ML SYR LEFT EYE ONE; -HYALURONIDASE/LIDOCAINE/BUPIVACAINE 5 ML SYR RIGHT EYE ONE; -INSULIN HUMAN REGULAR 1,000 UNITS/10 ML VIAL SQ PRN; -IPRASOL NEB; -PHENYLEPHRINE HCL 2.5% OPTH SOLN 2 ML BTL ONE; -POTA-163 PO; -PRED10PA PO; +PROPARACAINE HCL 0.5% OPHT SOLN 15 ML BTL LEFT EYE ONE; -PROPARACAINE HCL 0.5% OPHT SOLN 15 ML BTL ONE; -PROPARACAINE HCL 0.5% OPHT SOLN 15 ML BTL RIGHT EYE ONE; -TETRACAINE 0.5% OPTH SOLN 4 ML BTL ONE; -TROPICAMIDE 1% OPHT SOLN 15 ML BTL ONE
[2018-03-21 08:53] VITALS: PULSE 81
[2018-03-21] MEDS: DICLOFENAC SOD 0.1% OPHT SOLN 2.5 ML BTL LEFT EYE SCH ×4 (08:55→09:04)
[2018-03-21] MEDS: TROPICAMIDE 1% OPHT SOLN 15 ML BTL LEFT EYE SCH ×4 (08:55→09:04)
[2018-03-21] MEDS: GATIFLOXACIN 0.5% OPHT SOLN 2.5 ML BTL LEFT EYE SCH ×4 (08:55→09:04)
[2018-03-21] MEDS: PHENYLEPHRINE HCL 2.5% OPTH SOLN 2 ML BTL LEFT EYE SCH ×4 (08:55→09:04)
[2018-03-21] MEDS: CYCLOPENTOLATE HCL 1% OPHT SOLN 2 ML BTL LEFT EYE SCH ×4 (08:55→09:04)
[2018-03-21 09:34] VITALS: PULSE 80
[2018-03-21 11:53] VITALS: BP 134/64; PULSE 77; RESP 16; TEMP 97.6; O2SAT 94
--- NOTE | 2018-03-21 13:49 | MP ---
cc: Juan Luis Red MD DATE OF OPERATION: 03/21/2018 PREOPERATIVE DIAGNOSIS: Cataract, left eye. POSTOPERATIVE DIAGNOSIS: Cataract left eye. OPERATION: Extracapsular cataract extraction with posterior chamber intraocular lens implant by phacoemulsification, left eye. SURGEON: Juan Luis Red M.D. ANESTHESIA: Local. COMPLICATIONS: None. INDICATIONS: See history and physical previously dictated. OPERATIVE PROCEDURE: The patient had adequate retrobulbar and eyelid blocks administered in the holding area and was brought to the operating room. The left eye was prepped and draped in the usual sterile ophthalmic manner. A lid speculum was inserted in the left eye. A 4-0 silk bridle suture was placed through the conjunctiva near the superior rectus muscle and it was tagged to the drape. A stab incision was then made at the 2 o'clock position. Viscoelastic was injected into the anterior chamber. The anterior chamber was entered with a 2.75 mm keratome through a corneal tunnel incision. A 360 degree continuous curvilinear capsulorrhexis was then performed. Hydrodissection was utilized to divide the nucleus into inner and outer components and to separate the cortex from the capsule. Phacoemulsification was then utilized to remove the nucleus. The outer nuclear layer was removed with irrigation and aspiration and short bursts of ultrasound as necessary. The cortex was removed with the irrigation/aspiration handpiece. The posterior capsule was polished with the capsule polisher. Viscoelastic was injected into the capsular bag. The intraocular lens was inspected and found to be in good condition. The lens utilized was an All, model number SA60AT with a power of +19.5 diopters. The lens was inserted into the capsular bag. The viscoelastic in the anterior chamber was then removed with the irrigation-aspiration handpiece. Viscoelastic was also removed from beneath the intraocular lens. The anterior chamber was filled with Miochol-E through the stab incision and pressurized. The wound was checked for leaks at this pressure and normalized pressure and there were none. The 4-0 bridle suture was removed. Pilocarpine 2% eye drops were instilled topically. The lid speculum was removed. TobraDex ophthalmic ointment was applied. The eye was double patched and shielded. The patient tolerated the procedure well and left the Operating Room in satisfactory condition. MD ADRIEL Beltrán/TITA , 12:54 PM , 01:47 PM
== END | disposition home or self-care (01) ==
LOC: PHSDC 07:38
PROVIDERS: ATTEND Ophthalmology
DX: H26.9 Unspecified cataract (principal); H02.839 Dermatochalasis of unspecified eye, unspecified eyelid; H43.819 Vitreous degeneration, unspecified eye; J44.9 Chronic obstructive pulmonary disease, unspecified; I50.9 Heart failure, unspecified; F17.210 Nicotine dependence, cigarettes, uncomplicated; Z86.73 Personal history of transient ischemic attack (TIA), and cerebral infarction without residual deficits; Z85.118 Personal history of other malignant neoplasm of bronchus and lung
CPT/HCPCS: 00142; 66984; J0171; J7040; V2632